=== PATIENT | female | born 1950 | race Caucasian/White ===

== ENCOUNTER 2020-11-09 21:51 | Inpatient (IN) | payer MEDICARE, SELFPAY ==
[2020-11-09 22:31] VITALS: BMI 25.7
--- NOTE | 2020-11-09 22:39 | ECG_ITS ---
APPROVED REPORT Exam: Resting ECG HR:76 bpm ECG Measurements Heart Rate 76 AXES CO 142 P 8 QRSd 100 QRS -20 QT 426 T 158 QTc 479 Conclusion Sinus rhythm with premature atrial complexes with aberrant conduction Left ventricular hypertrophy with repolarization abnormality Anteroseptal infarct, age undetermined Abnormal ECG Electronically signed by : Donavon Mendiola MD 11/10/2020 08:59:49
--- NOTE | 2020-11-09 22:54 | CT_ITS ---
PROCEDURE INFORMATION: Exam: CT Left Lower Extremity Without Contrast, Foot Exam date and time: 11/09/2020 10:54 PM Age: 69 years old Clinical indication: Other: Great toe infection ? gangrene; Additional info: Rule out bone infection diabetic great toe black ? gangrene TECHNIQUE: Imaging protocol: CT of the Left lower extremity without contrast was performed. Exam focused on the foot. Radiation optimization: All CT scans at this facility use at least one of these dose optimization techniques: automated exposure control; mA and/or kV adjustment per patient size (includes targeted exams where dose is matched to clinical indication); or iterative reconstruction. COMPARISON: No relevant prior studies available. FINDINGS: Bones/joints: There is marked diffuse bone demineralization. The distal phalangeal tuft of the great toe terminal phalanx appears very close to the wound surface, could be partially exposed. However, there is no rogerio cortical erosion or osteolysis demonstrated. 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 Scattered predominantly mild degenerative changes elsewhere. Moderate to large plantar calcaneal enthesophyte. Small corticated/chronic ossific bodies are seen near the dorsal margins of the 1st and 2nd metatarsal bases. Lateral subluxation of the hallux sesamoids. Soft tissues: Soft tissue ulceration of the distal great toe. No soft tissue gas. No abscess identified on this noncontrast exam. Soft tissue swelling of the great toe suspicious for cellulitis. Generalized subcutaneous edema throughout the foot and ankle is nonspecific, could be proximal spread of cellulitis or bland edema. Mild thickening of the plantar fascia central cord may reflect fasciitis. Fatty atrophy of the intrinsic foot musculature suggesting chronic denervation. Vasculature: Atherosclerotic calcifications. IMPRESSION: Distal great toe wound with possible exposure or near exposure of the distal phalangeal tuft. No rogerio cortical erosion/osteolysis or definitive CT features of acute osteomyelitis. However, given proximity of the bone to the wound surface, an early osteomyelitis is not strictly excluded. MRI may be considered for more sensitive assessment if clinically indicated.
--- NOTE | 2020-11-09 22:54 | XR_ITS ---
PROCEDURE INFORMATION: Exam: XR Left Foot Exam date and time: 11/09/2020 10:54 PM Age: 69 years old Clinical indication: Other: Great toe infection ? gangrene TECHNIQUE: Imaging protocol: XR Left foot. Views: 3 or more views. COMPARISON: CT FOOT LT WO CON 11/09/2020 11:18 PM FINDINGS: Bones/joints: Generalized osteopenia. No focal cortical erosion or osteolysis to suggest acute osteomyelitis. However, distal phalangeal tuft of the great toe terminal phalanx appears to be in close proximity to the wound site. Mild hallux valgus with moderate 1st MTP joint osteoarthrosis. 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 Otherwise scattered mild degenerative changes. Plantar calcaneal enthesophyte. Soft tissues: Ulceration of the distal great toe. No soft tissue gas apart from the wound site. Vasculature: Scattered atherosclerotic calcifications. IMPRESSION: 1. Distal great toe ulceration. 2. No specific radiographic features of acute osteomyelitis. The distal phalangeal tuft of the great toe terminal phalanx may be in close proximity to the wound site.
--- NOTE | 2020-11-09 22:54 | XR_ITS ---
PROCEDURE INFORMATION: Exam: XR Chest Exam date and time: 11/09/2020 10:54 PM Age: 69 years old Clinical indication: Pain; Chest pressure; Additional info: Nstemi, cp TECHNIQUE: Imaging protocol: XR of the chest. Views: 1 view. COMPARISON: No relevant prior studies available. FINDINGS: Lungs: Unremarkable. No consolidation. No overt pulmonary edema. Pleural spaces: No pleural effusion. No pneumothorax. Heart/Mediastinum: Normal heart size. Aortic atherosclerosis. Bones/joints: Osteopenia. Old rib fractures. Calcific tendinosis of the right rotator cuff. Left subacromial spurring suggested. IMPRESSION: No acute finding.
--- NOTE | 2020-11-09 23:01 | HMH.HP ---
*Admission Date: 11/09/20 *Chief complaint: abn ekg/trop *History of present illness: this patient was seen at [facility] -pt was found to have abn ekg and elevated troponin and was transfered to [facility] for card eval - pt also has concerns about living with her family and was considered to be depressed but not suicide risk-pt has diabetes - no recent known card dis and has not been compliant with meds [facility] History I have reviewed the patient's past medical history: Yes Medical History: Reports:: Coronary Artery Disease, Diabetes Mellitus Type 2, Hyperlipidemia, Hypertension Denies:: Cancer, Diabetes Mellitus Type 1, MRSA *Have you ever received a pneumonia vaccine?: Yes *Have you received a flu vaccine this season?: No Amputation: No - *Social History Last grade of school completed: High school graduate Smoking Status: Never smoker Alcohol Intake: never *Occupational Status:: unemployed Housing: house Household Members: family, children *Travel in the last 8 weeks: None Family Hx:: Non-contributory Review of Systems - Review of Systems Review of systems:: pertinent systems reviewed and negative unless documented below - Constitutional Denies fever(s) - Eyes Denies change in vision - ENT Denies sore throat - *Cardiovascular Reports chest pain, Denies shortness of breath - *Respiratory Denies cough - *Gastrointestinal Denies abdominal pain - *Genitourinary Denies blood in urine - *Musculoskeletal Reports joint pain - Integumentary/Breasts Denies rash - *Neurologic Denies localized weakness - Psychiatric Reports depression Meds Home Medications Medication Instructions Recorded Confirmed Type Atorvastatin Calcium [Lipitor 40mg 40 mg PO HS 11/09/20 11/09/20 History Tab] Glimepiride 2 mg PO DAILY 11/09/20 11/09/20 History Insulin Aspart [Novolog] 0 unit SQ DAILY 11/09/20 11/09/20 History Insulin Glargine,Hum.rec.anlog 0 units SQ DAILY 11/09/20 11/09/20 History [Lantus Insulin 100units/mL 10mL vial] Losartan Potassium 25 mg PO DAILY 11/09/20 11/09/20 History Metformin HCl [Metformin 1000mg 1,000 mg PO BID 11/09/20 11/09/20 History Tablets] Nitroglycerin [Nitrostat 0.4mg SL 0.4 mg SL NEEDED PRN 11/09/20 11/09/20 History Tablet] Oxybutynin Chloride [Ditropan Xl] 10 mg PO DAILY 11/09/20 11/09/20 History Pantoprazole Sodium [Protonix 40mg 40 mg PO DAILY 11/09/20 11/09/20 History tablet] Sertraline HCl [Zoloft 50mg tablet] 50 mg PO DAILY 11/09/20 11/09/20 History carvediloL [Carvedilol 25mg Tab] 25 mg PO BID 11/09/20 11/09/20 History Allergies Allergy/AdvReac Type Severity Reaction Status Date / Time No Known Allergies Allergy Verified 11/09/20 22:42 Exam I & O for Last 24 hours: Intake & Output 11/07/20 11/08/20 11/09/20 11/10/20 11:59 11:59 11:59 11:59 Weight 145 lb - Constitutional obese - *Routine HEENT Exam Head: Present: normocephalic Eye: Present: EOMI, PERRL ENT: Present: mucous membranes dry - *Routine Neck Exam Absent: JVD - *Routine Respiratory Exam Present: CTA bilaterally - *Routine Cardiovascular Exam Present: RRR, murmur - *Routine Abdominal Exam Present: soft - *Routine Rectal Exam Rectal:: deferred - *Routine Genitalia Exam Genitalia:: deferred - *Routine Extremities Exam Absent: calf tenderness Comments: changes lt great toe with reddness - *Routine Skin Exam Comments: changes lt great toe with crusted changes and tender with reddness - no smell noted - *Routine Neurological Exam Present: alert Assessment and Plan (1) Elevated troponin Status: Acute Category: Medical Code(s): R77.8 - Other specified abnormalities of plasma proteins (2) Diabetes mellitus Status: Acute Qualifiers: Diabetes mellitus type: type 2 Diabetes mellitus jail insulin use: unspecified jail insulin use status Diabetes mellitus complication status: with other specified compl
[2020-11-09 23:09] VITALS: BP 174/92; PULSE 78; RESP 15; O2SAT 98
[2020-11-09 23:10] LABS: Coronavirus 19, PCR Not Detected (NotDetected); Influenza A, PCR Not Detected (NotDetected); Influenza B, PCR Not Detected (NotDetected)
[2020-11-10] VITALS (18 sets, daily range): BP systolic 132–188; BP diastolic 56–100; PULSE 61–90; RESP 16–20; TEMP 35.2–37.3; O2SAT 94–100; BMI 25.7
--- NOTE | 2020-11-10 | IR_ITS ---
APPROVED REPORT Patient Location: Inpatient PROCEDURES Left heart catheterization Left ventriculogram Selective coronary angiogram Catheter placed in the abdominal aorta Abdominal aortogram Repositioning the catheter in the abdominal aorta Bilateral iliofemoral runoff Catheter placement in the left popliteal artery Left popliteal artery antegrade angiogram Angioplasty followed by bare-metal stent deployment to the left PT trunk extending into the left popliteal artery and left superficial femoral artery Catheter placement in the right renal artery Right renal artery selective angiogram Bare-metal stent deployment to the ostial right renal artery INDICATION Acute non-ST elevation myocardial infarction, Renovascular hypertension, Renal artery stenosis, Nadia claudication class V- involving the left leg, Abnormal RICCI, Occluded left popliteal artery extending into the PT trunk, Informed consent was obtained prior to the procedure. COMPLICATIONS None Estimated Blood Loss: less than 10ml TECHNIQUE 1% lidocaine used anesthetize right groin the right femoral artery was accessed via the Salinger technique and a 5 Cymraes sheath was placed in the right femoral artery. A [id number] JR4 catheter used to perform left heart catheterization left ventriculogram and selective coronary angiogram. Following this a pigtail catheter was placed in the abdominal aorta and abdominal aortography was performed. The catheter was then repositioned and bilateral iliofemoral runoff was performed. Following this a long advantage wire was then placed in the pigtail catheter and used to cannulate the left common iliac artery extending down into the left popliteal artery. The 5 Cymraes sheath was exchanged for a 6 Cymraes destination sheath. Therapeutic heparin was administered giving a therapeutic ACT. A 5 mm x 120 mm balloon was used to push through the occlusion and then placed in the PT trunk. The wire was removed and antegrade angiography was performed demonstrating patency and appropriate placement of the distal aspect of the balloon within the true lumen of the PT trunk. The wire was then reinserted and the balloon was inflated at 10 and 12 vick on multiple occasions at the PT trunk popliteal artery and then proximal SFA. Following this a 6 mm x 150 mm self-expanding EV 3 stent was deployed in the PT trunk extending retrograde into the popliteal artery. An additional 6 mm x 120 mm self-expanding stent was then placed proximal to this extending back into the SFA. 5 mm x 200 mm balloon was deployed at 20 and 22 and 24 vick to post dilate throughout all the vessels. After achieving excellent angiographic results with wide inline flow and wide patency of the above arteries the apparatus was repulled back in the 6 Cymraes sheath was exchanged for a 7 Cymraes sheath. Short MCKENNA catheter was used to intubate the right renal artery where a Choice PT wire was placed distally. A 6 mm x 12 mm Herculink stent was deployed at 20 vick reducing the critical stenosis to 0%. After achieving excellent angiographic results with wide patency of the right renal artery the apparatus was removed the groin was reprepped closure changed sheath was removed good hemostasis was achieved using Perclose device patient was transferred to the postop putting in stable condition ANGIOGRAPHIC RESULTS The left main artery Has an ostial calcified 30 to 40% stenosis The left anterior descending artery Has proximal 30 to 40% calcified stenoses with mid vessel 30% stenoses and a distal concentric 50% stenosis The circumflex artery Nondominant with mild proximal 10 to 20% calcified stenoses The right coronary artery Is a large dominant vessel with a proximal to mid
--- NOTE | 2020-11-10 | US_ITS ---
APPROVED REPORT Exam Type: Ankle to Brachial Index International Marketing Intern: Bri Dwyer, POT RUNNER Indications Claudication: Bilaterally Non-healing Ulcer: Rest Pain: Bilaterally Risk Factors Hypertension Hyperlipidemia TIA/CVA History Diabetes Pressures/Indices Right Indices Left Indices Brachial 200.00 mmHg Brachial 197.00 mmHg Low Thigh 211.00 mmHg 1.06 Low Thigh 119.00 mmHg 0.60 Calf 204.00 mmHg 1.02 Calf 114.00 mmHg 0.57 Ankle(PT) 185.00 mmHg 0.93 Ankle(PT) 78.00 mmHg 0.39 Ankle(DP) 216.00 mmHg 1.08 Ankle(DP) 129.00 mmHg 0.65 Digit 198.00 mmHg 0.99 Digit 87.00 mmHg 0.44 Findings Rt RICCI 1.1 Lt RICCI 0.7 Rt TBI 1.0 Lt TBI 0.5 Decreased pulses and waveforms on the left. Conclusion Rt RICCI 1.1 Lt RICCI 0.7 Rt TBI 1.0 Lt TBI 0.5 Decreased pulses and waveforms on the left. Some left arterial disease Electronically signed by : Ron Gonsaels MD 11/10/2020 15:33:39
[2020-11-10 00:01] LABS: Basophils # 0.1 K/mm3 (0-0.2); Basophils % 1.2 % (0.1-2.0); Eosinophils # 0.1 K/mm3 (0.0-0.4); Eosinophils % 1.8 % (0.1-12.0); Hematocrit 46.3 % (37.0-47.0); Lymphocytes % 27.1 % (10-50); Mean Corpuscular HGB Conc 32.4 g/dL (31.8-35.4); Mean Corpuscular Hemoglobin 29.7 pg (27.0-31.2); Mean Corpuscular Volume 91.7 fl (81-99); Mean Platelet Volume 9.1 fl (7.4-10.4); Monocytes # 0.3 K/mm3 (0.1-1.0); Monocytes % 4.3 % (1.7-9.3); Neutrophils # 4.8 K/mm3 (1.8-7.8); Neutrophils % 65.6 % (37.0-80.0); Platelet Count 276 K/mm3 (142-424); Red Blood Count 5.05 M/mm3 (4.20-5.40); Red Cell Distribution Width 13.6 % (11.5-17.5); White Blood Count 7.4 K/mm3 (4.8-10.8)
[2020-11-10 00:08] LABS: Anion Gap 13.8 mEq/L (5-15); Blood Urea Nitrogen 9 mg/dl (7-17); Calcium 9.4 mg/dl (8.4-10.2); Carbon Dioxide 25 mmol/L (22.0-30.0); Chloride 103 mmol/L (98-107); Creatinine Clearance Estimated 54 mL/min (50-200); Estimated Glomerular Filt Rate 99 ml/min (>60); GFR (African American) 120 ML/MIN (>60); Glucose 222 mg/dl (74-100); Lactic Acid 1.2 mmol/L (0.7-2.1); Potassium 3.8 mmoL/L (3.5-5.1); Sodium 138 mmol/L (136-145)
[2020-11-10 00:22] LABS: Troponin I 0.42 ng/ml (0.00-0.034)
[2020-11-10 00:23] LABS: Erythrocyte Sedimentation Rate 21 mm/hr (0-30)
--- NOTE | 2020-11-10 00:23 | PC.NURSE ---
notified md of elevated troponin
--- NOTE | 2020-11-10 05:23 | PC.NURSE ---
call placed to [facility] on 2nd floor to have patients placed on consult list for behavioral health,podiatry and cardiology
--- NOTE | 2020-11-10 05:31 | PC.NURSE ---
pt incontinent of bladder. turned and repositioned with staff assist. vss. blood collected and sent to lab for morning labs ordered.
[2020-11-10 06:05] LABS: Basophils # 0.1 K/mm3 (0-0.2); Basophils % 1.2 % (0.1-2.0); Eosinophils # 0.1 K/mm3 (0.0-0.4); Eosinophils % 2.1 % (0.1-12.0); Hematocrit 43.9 % (37.0-47.0); Hemoglobin 14.1 g/dL (12.2-16.2); Lymphocytes # 2.1 K/mm3 (0.7-4.5); Lymphocytes % 31.3 % (10-50); Mean Corpuscular Hemoglobin 29.8 pg (27.0-31.2); Mean Corpuscular Volume 92.9 fl (81-99); Mean Platelet Volume 9.3 fl (7.4-10.4); Monocytes # 0.3 K/mm3 (0.1-1.0); Monocytes % 4.8 % (1.7-9.3); Neutrophils % 60.6 % (37.0-80.0); Platelet Count 290 K/mm3 (142-424); Red Blood Count 4.73 M/mm3 (4.20-5.40); Red Cell Distribution Width 13.5 % (11.5-17.5); White Blood Count 6.7 K/mm3 (4.8-10.8)
[2020-11-10 06:22] LABS: Anion Gap 10.1 mEq/L (5-15); Blood Urea Nitrogen 11 mg/dl (7-17); Calcium 9.1 mg/dl (8.4-10.2); Carbon Dioxide 26 mmol/L (22.0-30.0); Chloride 104 mmol/L (98-107); Chol/HDL Ratio 6.9 (1-3.5); Cholesterol 254 mg/dl (140-200); Creatinine Clearance Estimated 54 mL/min (50-200); Estimated Glomerular Filt Rate 99 ml/min (>60); GFR (African American) 120 ML/MIN (>60); Glucose 243 mg/dl (74-100); HDL Cholesterol 37 mg/dl (40-60); Magnesium 1.5 mg/dl (1.6-2.3); Potassium 4.1 mmoL/L (3.5-5.1); Sodium 136 mmol/L (136-145); Triglycerides 185 mg/dl (30-150); VLDL Cholesterol 37 mg/dL (0-40)
[2020-11-10 06:33] LABS: Direct LDL Cholesterol 164.19 mg/dL (100-129)
--- NOTE | 2020-11-10 07:22 | HMH.PHAVTE ---
[facility] Pharmacy VTE Monitoring - Patient Demographics Admission date: 11/10/20 Report Date: 11/10/20 Time: 07:22 Allergies/Adverse Reactions: Patient Allergies No Known Allergies Allergy (Verified 11/09/20 22:42) Height: 1.6 m Weight: 65.771 kg Patient Problems: Current Active Problems Elevated troponin (Acute) Diabetes mellitus (Acute) Hyperlipidemia (Acute) Cellulitis and abscess of foot (Acute) Diabetic foot ulcer (Acute) Depressed (Acute) HTN (hypertension) (Acute) GERD (gastroesophageal reflux disease) (Acute) - VTE Risk Labs: VTE Related Lab Results Hgb 14.1 g/dL (12.2-16.2) 11/10/20 05:45 Hct 43.9 % (37.0-47.0) 11/10/20 05:45 Plt Count 290 K/mm3 (142-424) 11/10/20 05:45 BUN 11 mg/dl (7-17) 11/10/20 05:45 Creatinine 0.60 mg/dl (0.52-1.04) 11/10/20 05:45 Estimated Creat Clear 54 mL/min (50-200) 11/10/20 05:45 - Prophylaxis VTE Prophylaxis Ordered?: Yes Types of VTE Prophylaxis: TEDS Knee High Location of Applied Device: Bilateral Lower Extremeties
--- NOTE | 2020-11-10 07:30 | PC.NURSE ---
PT RESTING IN BED. PT ALERT AND ORIENTED X 4 SKIN WARM AND DRY COLOR PINK. RESP EVEN AND EASY.
--- NOTE | 2020-11-10 07:44 | HMH.CNCARD ---
History of Present Illness Consult date: 11/10/20 Requesting physician: Rajinder Sparrow Consult reason: chest pain Chief complaint: chest pain History of present illness: 69-year-old female was transferred from [facility] last evening with elevated troponins and chest pain. Patient is poor historian. Patient states that she lives with her son who has been treating her very bad. Patient states she was transported to [facility] due to her crying. Patient denies chest pain, tightness or pressure. Patient denies shortness of breath. Patient denies dizziness or palpitations. Patient denies any history of coronary artery disease. Patient states she did undergo left heart catheterization around 20 years ago at a hospital in [facility]. Patient states she was told her heart was fine. Patient denies following up with any cardiology group since her heart catheterization 20 years ago. Patient does have history of hypertension which is uncontrolled. Patient is noncompliant with medications. Patient has history of diabetes type 2, which is uncontrolled. History of hyperlipidemia in which patient is on a statin. LDL was noted as 164. Patient states she has been depressed since living with her son. She denies suicidal ideations. Patient does states that her son does not give her medication nor does he feed her. Patient was very tearful. Will defer this to PCP and case management. Patient noted with nonhealing wound of the left great toe. The tip of the great left toe noted with necrosis and redness extending to the left foot. Podiatry in room. RICCI had been performed. Preliminary report on RICCI reported weak pulse of the left foot with decreased waveforms of the left foot. Left was noted as 0.7. Patient states over a month ago her grandson had stepped on her toe, and she felt that this was due to that incident. Defer nonhealing wound to podiatry. Chest CTA was performed which revealed normal heart size, aortic atherosclerosis. No acute findings noted. EKG revealed sinus rhythm with premature atrial complexes with aberrant conduction. Left ventricular hypertrophy with repolarization anteroseptal infarct, abnormal EKG with a heart rate of 76 bpm. Chest x-ray revealed no acute finding. Serial troponins were noted at 0.42. Blood pressure is noted as elevated. Patient states she has not taken her blood pressure medications for some time. We will restart losartan 25 mg for better BP control. Also start carvedilol 25 mg twice daily for heart rate and blood pressure control. Foot CTIMPRESSION: Distal great toe wound with possible exposure or near exposure of the distal phalangeal tuft. No rogerio cortical erosion/osteolysis or definitive CT features of acute osteomyelitis. However, given proximity of the bone to the wound surface, an early osteomyelitis is not strictly excluded. MRI may be considered for more sensitive assessment if clinically indicated. Chest CTA:FINDINGS: Lungs: Unremarkable. No consolidation. No overt pulmonary edema. Pleural spaces: No pleural effusion. No pneumothorax. Heart/Mediastinum: Normal heart size. Aortic atherosclerosis. Bones/joints: Osteopenia. Old rib fractures. Calcific tendinosis of the right rotator cuff. Left subacromial spurring suggested. IMPRESSION: No acute finding. Discussed plan of care with Dr. Adhikari. Orders were received from Dr. Adhikari. Patient will be set up for a left heart catheterization due to non-STEMI and left lower extremity runoff due to abnormal RICCI. Discussed risks and benefits with patient undergoing left heart catheterization and lower extremity runoff, patient verbalized understanding and is agreeable to procedure. Pending on the results of the left heart catheterization and left lower extremity runoff, medication and treatment therapies may be recommended. Management of nonhealing wound deferred to PCP and podiatry.
--- NOTE | 2020-11-10 08:25 | PC.NURSE ---
CARDIOLOGY AT BEDSIDE
--- NOTE | 2020-11-10 08:30 | PC.NURSE ---
PODIATRY AT BEDSIDE
--- NOTE | 2020-11-10 08:38 | HMH.ORTHOCON ---
*Admission Date: 11/10/20 <Tova Mathews - 11/10/20 08:45> *Reason for consult:: Left Hallux gangrene wound and cellulitis <Tova Mathews - 11/10/20 08:45> *History of present illness: Physician Attestation: I was present during all of the critical components of the consult visit. The patient was seen, evaluated and examined by myself and Tova Mathews APRN. I have read the note that was documented by the ELECTRIFICATION ADVISER and agree with the documentation. A total of 60 mins was spent on encounter/consult including face to face exam, review of labs, chart review, x-rays/CT/RICCI review, discussion of plan of care with another provider and documentation. <Brianda Oconnell - 11/10/20 12:37> Patient was brought into the ER last night for having elevated troponin but denies chest pain. She also has a wound to her Left Hallux distal tip that is a dry gangrene ulcer. Patient not sure of exactly of how long she has had the wound she states approximately a month. Started out as her clipping her toenail started to bleed, then she put on the dressing and then the whole nail come off. There is cellulitis contained to the Left hallux. Left DP/PT weakly palpable, the Right DP/PT is bounding, palpable. Patient had ABIs obtained this morning while in the emergency room the left RICCI 0.65, will not be doing any debriding to traumatize the the tissue any further. Patient is scheduled to have runoff sometime today we will reevaluate the tissue after the runoff. We have talked with the patient about what needed to be done to treat the left hallux. We have obtained verbal and written surgical consent for I&D of the left hallux of any nonviable soft tissue and bone, bone biopsy, and possible left toe amputation. Patient is to remain n.p.o. until after all the procedures have been completed today <Tova Mathews - 11/10/20 09:42> [facility] History I have reviewed the patient's past medical history: Yes <Tova Mathews - 11/10/20 10:42> Medical History: Reports:: Coronary Artery Disease, Diabetes Mellitus Type 2, Hyperlipidemia, Hypertension Denies:: Cancer, Diabetes Mellitus Type 1, MRSA <Tova Mathews 11/10/20 08:45> *Have you ever received a pneumonia vaccine?: Yes <Tova Mathews 11/10/20 08:45> *Have you received a flu vaccine this season?: No <Tova Mathews 11/10/20 08:45> Amputation: No <Tova Mathews 11/10/20 08:45> - *Social History Last grade of school completed: High school graduate <Tova Mathews 11/10/20 08:45> Smoking Status: Never smoker <Tova Mathews 11/10/20 08:45> Alcohol Intake: never <Tova Mathews 11/10/20 08:45> *Occupational Status:: unemployed <Tova Mathews 11/10/20 08:45> Housing: house <Tova Mathews 11/10/20 08:45> Household Members: family, children <Tova Mathews 11/10/20 08:45> *Travel in the last 8 weeks: None <Tova Mathews 11/10/20 08:45> Family Hx:: Non-contributory <Tova Mathews 11/10/20 08:45> Review of Systems - Constitutional Reports fatigue, Reports other (poor appetite) <Tova Mathews 11/10/20 10:42> - Eyes Denies change in vision <Tova Mathews 11/10/20 10:42> - ENT Denies abnormal hearing <Tova Mathews 11/10/20 10:42> - *Cardiovascular Denies chest pain, Denies shortness of breath <BisiTova Faria 11/10/20 10:42> - *Respiratory Denies cough, Denies shortness of breath <Tova Mathews 11/10/20 10:42> - *Gastrointestinal Denies abdominal pain <BisiTova Faria 11/10/20 10:42> - *Genitourinary Reports absent period <Tova Mathews 11/10/20 10:42> - *Musculoskeletal Reports numbness, Reports tingling <Tova Mathews 11/10/20 10:42> - Integumentary/Breasts Reports nail changes, Reports dry skin, Reports redness (Cellulitis to left hallux), Reports wounds (Left hallux DM ulcers with gangrene) <Tova Mathews 11/10/20 10:42> - *Neurologic Denies abnormal speech, Denies localized weakness
--- NOTE | 2020-11-10 09:55 | PC.NURSE ---
PT UP TO BATHROOM PER WHEELCHAIR WITH ASSIST OF ONE.
[2020-11-10 10:01] LABS: Hemoglobin A1C 13.5 % (4.0-6.0)
--- NOTE | 2020-11-10 11:34 | HMH.PHAINT ---
MEDICATION RECONCILIATION COMPLETED ON PATIENT BY USING MEDICATION LIST FROM [facility] AND CALLING [facility] IN [place]. LAST FILL THERE WAS LAST YEAR. PATIENT HAS BEEN NONCOMPLIANT WITH MEDICATIONS.
--- NOTE | 2020-11-10 13:57 | PC.NURSE ---
1355 Report received from Leanna Lama RN in labeler
--- NOTE | 2020-11-10 14:07 | PC.NURSE ---
pt arrived to the floor at this time.
--- NOTE | 2020-11-10 14:46 | PC.NURSE ---
Unable to complete admission assessment interventions at this time. Pt has been drowsy since arrival to dept from labor economics professor.
--- NOTE | 2020-11-10 16:19 | PC.NURSE ---
1555 Bear paws initiated for mild hypothermia. Will continue to monitor rectal temp per protocol. Pt has slept since coming from cath lab nurse. Arouses to name, will not stay awake for long enough to complete admission assessment. Bed locked and in lowest position with side rails up x2. Call light within reach.
--- NOTE | 2020-11-10 16:45 | HMH.PHACONS ---
- Pharmacy Consult Date: 11/10/20 Time: 16:45 Referring provider: KARTHIK Reason for Consult:: VANCOMYCIN DOSING Allergies and ADEs:: Allergies Allergy/AdvReac Type Severity Reaction Status Date / Time No Known Allergies Allergy Verified 11/09/20 22:42 Home Medications:: Home Medications Medication Instructions Recorded Confirmed Type Atorvastatin Calcium [Lipitor 40mg 40 mg PO HS 11/09/20 11/09/20 History Tab] Glimepiride 2 mg PO DAILY 11/09/20 11/09/20 History Losartan Potassium 25 mg PO DAILY 11/09/20 11/09/20 History Metformin HCl [Metformin 1000mg 1,000 mg PO BIDWMEAL 11/09/20 11/10/20 History Tablets] Nitroglycerin [Nitrostat 0.4mg SL 0.4 mg SL Q5MINP PRN 11/09/20 11/10/20 History Tablet] Oxybutynin Chloride [Ditropan Xl] 10 mg PO DAILY 11/09/20 11/09/20 History Pantoprazole Sodium [Protonix 40mg 40 mg PO DAILY 11/09/20 11/09/20 History tablet] Sertraline HCl [Zoloft 50mg tablet] 50 mg PO DAILY 11/09/20 11/09/20 History carvediloL [Carvedilol 25mg Tab] 25 mg PO BID 11/09/20 11/09/20 History Height: 1.6 m Weight: 66 kg Laboratory Results:: Laboratory Results - last 24 hr 11/09/20 23:00: SARS-CoV-2 (PCR) Not detected, Influenza A Untype (PCR) Not detected, Influenza Type B (PCR) Not detected 11/09/20 23:50: WBC 7.4, RBC 5.05, Hgb 15.0, Hct 46.3, MCV 91.7, MCH 29.7, MCHC 32.4, RDW 13.6, Plt Count 276, MPV 9.1, Neut % (Auto) 65.6, Lymph % (Auto) 27.1, [place] % (Auto) 4.3, Eos % (Auto) 1.8, Baso % (Auto) 1.2, Neut # (Auto) 4.8, Lymph # (Auto) 2.0, [place] # (Auto) 0.3, Eos # (Auto) 0.1, Baso # (Auto) 0.1, ESR 21 11/09/20 23:50: Sodium 138, Potassium 3.8, Chloride 103, Carbon Dioxide 25, Anion Gap 13.8, BUN 9, Creatinine 0.60, Estimated Creat Clear 54, Estimated GFR 99, Est GFR ( Amer) 120, Glucose 222 H, Calcium 9.4, Troponin I 0.42 H, C-Reactive Protein 7.0 H 11/09/20 23:50: Lactate 1.2 11/10/20 05:45: WBC 6.7, RBC 4.73, Hgb 14.1, Hct 43.9, MCV 92.9, MCH 29.8, MCHC 32.0, RDW 13.5, Plt Count 290, MPV 9.3, Neut % (Auto) 60.6, Lymph % (Auto) 31.3, [place] % (Auto) 4.8, Eos % (Auto) 2.1, Baso % (Auto) 1.2, Neut # (Auto) 4.0, Lymph # (Auto) 2.1, [place] # (Auto) 0.3, Eos # (Auto) 0.1, Baso # (Auto) 0.1 11/10/20 05:45: Sodium 136, Potassium 4.1, Chloride 104, Carbon Dioxide 26, Anion Gap 10.1, BUN 11, Creatinine 0.60, Estimated Creat Clear 54, Estimated GFR 99, Est GFR ( Amer) 120, Glucose 243 H, Calcium 9.1, Magnesium 1.5 L, Triglycerides 185 H, Cholesterol 254 H, LDL Cholesterol Direct 164.19 H, VLDL Cholesterol 37, HDL Cholesterol 37 L, Cholesterol/HDL Ratio 6.9 H 11/10/20 05:45: Hemoglobin A1c 13.5 H Medical History: Reports:: Coronary Artery Disease, Diabetes Mellitus Type 2, Hyperlipidemia, Hypertension Denies:: Cancer, Diabetes Mellitus Type 1, MRSA Assessment and Plan (1) Elevated troponin Status: Acute Category: Medical Code(s): R77.8 - Other specified abnormalities of plasma proteins (2) Diabetes mellitus Status: Acute Qualifiers: Diabetes mellitus type: type 2 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 Diabetes mellitus complication status: with other specified complication Qualified Code(s): E11.69 - Type 2 diabetes mellitus with other specified complication Category: Medical Code(s): E11.9 - Type 2 diabetes mellitus without complications (3) Hyperlipidemia Status: Acute Qualifiers: Hyperlipidemia type: unspecified Qualified Code(s): E78.5 - Hyperlipidemia, unspecified Category: Medical Code(s): E78.5 - Hyperlipidemia, unspecified (4) Cellulitis and abscess of foot Status: Acute Category: Medical Code(s): L03.119 - Cellulitis of unspecified part of limb; L02.619 - Cutaneous abscess of unspecified foot (5) Diabetic foot ulcer Status: Acute Qualifiers: Diabetic foot ulcer location: toe Diabetes mellitus type: type 2 Laterality: left Non-pressure ulcer stage: with other severity Q
--- NOTE | 2020-11-10 17:06 | HMH.ACPN2 ---
Internal Medicine - PN: Subj *Date: 11/11/20 *Time: 07:22 Interval history: had card procedure today - and was seen by podiatry Exam Vital signs and Labs for Last 24 Hours: Temp Pulse Resp BP Pulse Ox 95.3 F L 66 20 188/86 H 100 11/10/20 15:55 11/10/20 15:55 11/10/20 15:55 11/10/20 15:55 11/10/20 15:55 Laboratory Results - last 24 hr 11/09/20 23:00: SARS-CoV-2 (PCR) Not detected, Influenza A Untype (PCR) Not detected, Influenza Type B (PCR) Not detected 11/09/20 23:50: WBC 7.4, RBC 5.05, Hgb 15.0, Hct 46.3, MCV 91.7, MCH 29.7, MCHC 32.4, RDW 13.6, Plt Count 276, MPV 9.1, Neut % (Auto) 65.6, Lymph % (Auto) 27.1, [place] % (Auto) 4.3, Eos % (Auto) 1.8, Baso % (Auto) 1.2, Neut # (Auto) 4.8, Lymph # (Auto) 2.0, [place] # (Auto) 0.3, Eos # (Auto) 0.1, Baso # (Auto) 0.1, ESR 21 11/09/20 23:50: Sodium 138, Potassium 3.8, Chloride 103, Carbon Dioxide 25, Anion Gap 13.8, BUN 9, Creatinine 0.60, Estimated Creat Clear 54, Estimated GFR 99, Est GFR ( Amer) 120, Glucose 222 H, Calcium 9.4, Troponin I 0.42 H, C-Reactive Protein 7.0 H 11/09/20 23:50: Lactate 1.2 11/10/20 05:45: WBC 6.7, RBC 4.73, Hgb 14.1, Hct 43.9, MCV 92.9, MCH 29.8, MCHC 32.0, RDW 13.5, Plt Count 290, MPV 9.3, Neut % (Auto) 60.6, Lymph % (Auto) 31.3, [place] % (Auto) 4.8, Eos % (Auto) 2.1, Baso % (Auto) 1.2, Neut # (Auto) 4.0, Lymph # (Auto) 2.1, [place] # (Auto) 0.3, Eos # (Auto) 0.1, Baso # (Auto) 0.1 11/10/20 05:45: Sodium 136, Potassium 4.1, Chloride 104, Carbon Dioxide 26, Anion Gap 10.1, BUN 11, Creatinine 0.60, Estimated Creat Clear 54, Estimated GFR 99, Est GFR ( Amer) 120, Glucose 243 H, Calcium 9.1, Magnesium 1.5 L, Triglycerides 185 H, Cholesterol 254 H, LDL Cholesterol Direct 164.19 H, VLDL Cholesterol 37, HDL Cholesterol 37 L, Cholesterol/HDL Ratio 6.9 H 11/10/20 05:45: Hemoglobin A1c 13.5 H I & O for Last 24 hours: Intake & Output 11/08/20 11/09/20 11/10/20 11/11/20 11:59 11:59 11:59 11:59 Intake Total 0 / 0 0 / 0 Output Total 200 / 200 Balance -200 / -200 0 / 0 Weight 145 lb 145 lb 8.081 oz - Constitutional no acute distress - *Routine HEENT Exam Head: Present: normocephalic Eye: Present: EOMI, PERRL ENT: Present: mucous membranes dry - *Routine Neck Exam Absent: JVD - *Routine Respiratory Exam Present: decreased breath sounds - *Routine Cardiovascular Exam Present: RRR - *Routine Abdominal Exam Present: soft - *Routine Extremities Exam Comments: changes lt foot - *Routine Skin Exam Present: intact - *Routine Neurological Exam Present: alert, CN II-XII intact - Routine Psychiatric Exam Present: cooperative, anxious Assessment and Plan (1) Elevated troponin Status: Acute Category: Medical Code(s): R77.8 - Other specified abnormalities of plasma proteins (2) Diabetes mellitus Status: Acute Qualifiers: Diabetes mellitus type: type 2 Diabetes mellitus custodial insulin use: unspecified long term acute care registered nurse insulin use status Diabetes mellitus complication status: with other specified complication Qualified Code(s): E11.69 - Type 2 diabetes mellitus with other specified complication Category: Medical Code(s): E11.9 - Type 2 diabetes mellitus without complications (3) Hyperlipidemia Status: Acute Qualifiers: Hyperlipidemia type: unspecified Qualified Code(s): E78.5 - Hyperlipidemia, unspecified Category: Medical Code(s): E78.5 - Hyperlipidemia, unspecified (4) Cellulitis and abscess of foot Status: Acute Category: Medical Code(s): L03.119 - Cellulitis of unspecified part of limb; L02.619 - Cutaneous abscess of unspecified foot (5) Diabetic foot ulcer Status: Acute Qualifiers: Diabetic foot ulcer location: toe Diabetes mellitus type: type 2 Laterality: left Non-pressure ulcer stage: with other severity Qualified Code(s): E11.621 - Type 2 diabetes mellitus with foot ulcer; L97.528 - Non-pressure chronic ulcer of other part of left foot wit
--- NOTE | 2020-11-10 19:55 | PC.NURSE ---
bear paws removed at this time d/t temp 99.1 rectally
[2020-11-10 21:27] LABS: POC Glucose,Bedside 278 (70-110)
--- NOTE | 2020-11-10 22:54 | CA_ITS ---
APPROVED REPORT EXAM: Comprehensive 2D, Doppler, and color-flow Echocardiogram Board Machine Set Up Operator: Bri Dwyer CRT Ht: 5 ft 3 in Wt: 145lbs BSA: 1.69 BP: 1120/80 mmHg Indications: CVA/TIA, Diabetes, Peripheral Edema, CAD, Hyperlipidemia, Hypertension/HDD, GERD 2D Dimensions LVOT 1.46 cm (M/F) 1.5-2.5 LA Volume 55.10 mL LA Volume Index 32.60 mL/m2 (M/F) 16-34 M-Mode Dimensions RVDd 1.90 cm (0.9-2.6) LA Diam 4.09 cm (1.9-4.0) LVDd 3.78 cm (3.5-5.7) Ao Diam 3.52 cm (2.0-3.7) LVDs 2.96 cm (3.5-5.7) IVSd 2.42 cm (0.6-1.1) PWd 1.19 cm (0.6-1.1) EF (Teich) 44.60% FS 21.70% EDV (Teich) 61.20 mL TAPSE 1.41 (<1.7) ESV (Teich) 33.90 mL LV Diastology E Decel Time 383.00 (160-240 msec) E/A Ratio 0.59 MED E' 4.10 (< 7 cm/sec) MED A' 10.30 cm/s E'/MED E' Ratio 15.37 (>14) LAT E' 4.30 (<10 cm/sec) LAT A' 6.20 cm/s E/LAT E' Ratio 14.65 (>14) Aortic Valve AI PHT 294.00 ms AO Peak GR. 9.00 mmHg Mitral Valve MV A Velocity 107.00 (40-130 cm/s) E/A Ratio 0.59 MV Decel. Time 383.00 (160-240 ms) Pulmonary Valve PV Peak Velocity 107.00 (50-150 cm/s) Tricuspid Valve TR P. Velocity 234.00 cm/s RAP Estimate 10.00 mmHg RVSP 31.90 mmHg Left Ventricle Left atrium is mildly enlarged, left ventricle is normal size, moderate concentric left ventricular hypertrophy, visually estimated ejection fraction 50% with no regional wall motion abnormality, grade 1 diastolic dysfunction seen with tissue Doppler evidence of raise left atrial pressure. Right Ventricle Right atrium and right ventricle are normal size and contractility. Aortic Valve Aortic valve is thickened and calcified without Doppler evidence of aortic stenosis or aortic insufficiency. Mitral Valve Mitral valve has mitral annular calcification, leaflets are minimally thickened, there is mild mitral regurgitation. Tricuspid Valve Tricuspid valve grossly normal, there is mild tricuspid regurgitation, tricuspid regurgitation jet velocity is inadequate for calculation of the right ventricular systolic pressure. Pulmonic Valve Pulmonic valve is poorly visualized. Great Vessels Aortic root is normal size. Inferior vena cava is poorly visualized. Pericardium No significant pericardial effusion noted. Conclusion 1. Mildly enlarged left atrium, normal left ventricular size, moderate concentric left ventricular hypertrophy, visually estimated ejection fraction 55% with no regional wall motion abnormality, grade 1 diastolic dysfunction seen with tissue Doppler evidence of raise left atrial pressure. 2. Thickened and calcified aortic valve without aortic stenosis or aortic insufficiency. 3. Mild mitral and tricuspid regurgitation. 4. No significant pericardial effusion noted. Electronically signed by : Tyson Bertrand MD 11/10/2020 21:32:22
[2020-11-11] VITALS (18 sets, daily range): BP systolic 114–156; BP diastolic 52–84; PULSE 66–78; RESP 12–18; TEMP 36.1–37.1; O2SAT 96–100; BMI 25.7
--- NOTE | 2020-11-11 03:51 | PC.NURSE ---
pt has rested well throughout shift, pt is alert and oriented x 3, pt is refusing all care at this time, pt refused vitals and reassessment and refused to allow nurse to look at femoral cath site, no bleeding noted to blankets at this time, will continue to monitor at this time.
--- NOTE | 2020-11-11 07:37 | HMH.PNCARD ---
Subjective Date: 11/11/20 Time: 07:35 Principal diagnosis: Non-STEMI Interval history: 69-year-old female was admitted with non-STEMI. Patient is poor historian. Patient did undergo left heart catheterization and lower extremity runoff yesterday. Left heart catheterization revealed nonflow limiting coronary artery disease, hyperdynamic ventricle consistent with hypertensive heart disease. Normal left ventricular pressures noted. Severe right renal artery stenosis noted. Successful stenting to the right renal artery due to severe disease, with one bare-metal stent. Successful reconstruction of the left SFA left popliteal artery and left PT trunk 100% occluded reduced to less than 10% with two bare-metal self-expanding stents. Bilateral single vessel runoff below the knee noted. Patient was started on Plavix 75 mg one a day along with aspirin 81 mg p.o. daily. Patient was also started on Xarelto 2.5 twice daily for PAD. Patient is also on atorvastatin for hyperlipidemia. Right groin cath site noted with dressing intact no swelling noted. Patient denies chest pain, tightness or pressure. Patient denies shortness of breath. Patient denies dizziness or palpitations. Patient noted with nonhealing wound of the left great toe. The tip of the great left toe noted with necrosis and redness extending to the left foot. Defer nonhealing wound to podiatry. Podiatry is planning for patient to have debridement of the left great toe today. VS stable. Echocardiogram was obtained. Echo revealed EF 55% with no regional wall motion abnormality. Mild MR and TR noted. case monitor reveals sinus rhythm with a heart rate of 80 bpm with no ectopy. LHCANGIOGRAPHIC RESULTS The left main artery Has an ostial calcified 30 to 40% stenosis The left anterior descending artery Has proximal 30 to 40% calcified stenoses with mid vessel 30% stenoses and a distal concentric 50% stenosis The circumflex artery Nondominant with mild proximal 10 to 20% calcified stenoses The right coronary artery Is a large dominant vessel with a proximal to mid vessel tubular 30 to 40% stenosis with mild 10 to 20% stenosis distally The [place] ventriculogram reveals Hyperdynamic 75% The left ventricular end-diastolic pressure 10 mmHg Suprarenal abdominal aorta is normal with a widely patent infrarenal abdominal aorta. Right renal artery singular and has an ostial concentric 90% stenosis while the left renal artery has a dual arterial supply with both vessels being widely patent Bilateral common internal and external iliac arteries are widely patent Bilateral common femoral arteries are widely patent the bilateral profunda femoris arteries are widely patent The right superficial femoral artery is proximally calcified at 30 to 40% with a 60 to 70% stenosis at Shalom's canal. The proximal popliteal artery has a 70 to 80% calcified stenosis with 80 to 90% stenoses in the distal popliteal artery. Distally there is single-vessel runoff from the anterior tibialis artery which does not appear to supply the right foot however it was of poor diagnostic angiographic quality Left superficial femoral artery as proximal concentric 40 to 50% stenosis. At Shalom's canal there was a 90% concentric stenosis and then the popliteal artery is subtotally occluded calcified and 100% occluded. The vessel appears to reconstitute at the PT trunk and then supplies single-vessel runoff below the knee to the left foot via the anterior tibialis artery IMPRESSION Nonflow limiting coronary disease as described above Hyperdynamic ventricle consistent with hypertensive heart disease Normal left ventricular and pressure Severe right renal artery stenosis Successful stenting of the right renal artery severe disease reduced to 0% with 1 bare-metal stent Successful reconstruction of the left SFA left popliteal artery and left PT trunk 100% occlusion reduced to less than 10% with 2 bare-metal
[2020-11-11 07:44] LABS: Basophils # 0.1 K/mm3 (0-0.2); Basophils % 0.8 % (0.1-2.0); Eosinophils # 0.1 K/mm3 (0.0-0.4); Eosinophils % 1.6 % (0.1-12.0); Hematocrit 40.7 % (37.0-47.0); Hemoglobin 13.4 g/dL (12.2-16.2); Lymphocytes % 15.8 % (10-50); Mean Corpuscular Hemoglobin 30.3 pg (27.0-31.2); Mean Corpuscular Volume 91.7 fl (81-99); Mean Platelet Volume 8.8 fl (7.4-10.4); Monocytes # 0.4 K/mm3 (0.1-1.0); Monocytes % 5.6 % (1.7-9.3); Neutrophils # 4.9 K/mm3 (1.8-7.8); Neutrophils % 76.2 % (37.0-80.0); Platelet Count 224 K/mm3 (142-424); Red Blood Count 4.44 M/mm3 (4.20-5.40); Red Cell Distribution Width 13.5 % (11.5-17.5); White Blood Count 6.4 K/mm3 (4.8-10.8)
--- NOTE | 2020-11-11 07:45 | PC.NURSE ---
IV in Right wrist noted to be infiltrated and removed. New 20g IV placed in LAC. X4 attempts. Pt. tolerated well.
[2020-11-11 07:56] LABS: Blood Urea Nitrogen 8 mg/dl (7-17); Calcium 8.8 mg/dl (8.4-10.2); Carbon Dioxide 26 mmol/L (22.0-30.0); Creatinine Clearance Estimated 55 mL/min (50-200); Estimated Glomerular Filt Rate 83 ml/min (>60); GFR (African American) 100 ML/MIN (>60)
[2020-11-11 08:06] LABS: Chloride 104 mmol/L (98-107); Glucose 205 mg/dl (74-100); Sodium 137 mmol/L (136-145)
--- NOTE | 2020-11-11 08:09 | HMH.ORTHPN ---
Subjective Date: 11/11/20 Time: 07:45 Principal diagnosis: Non-STEMI Interval history: Patient doing very well this am. She states her toe is throbbing and hurt some through the night. Patient is NPO this am and will be going to surgery later this morning for incision and drainage of nonviable soft tissue and bone, bone biopsy, possible toe amputation of the left hallux. I cleaned the site with saline flush this morning, the site has less erythema but is still very tender to touch. The gangrene is still very dry no drainage noted to the site. The area was redressed with Betadine soaked 4 x 4, dry 4 x 4, Kerlix dressing. Patient's leg is marked for the appropriate site for surgery and her consent was reviewed at bedside and patient can state procedure to be done today. Vital signs are stable patient denies any nausea vomiting or fever. PN: Obj Ex Vital signs: Temp Pulse Resp BP Pulse Ox 98.7 F 70 18 155/80 H 96 11/11/20 00:00 11/11/20 04:00 11/11/20 00:00 11/11/20 00:00 11/11/20 00:00 - Constitutional no acute distress - Routine HEENT Exam Head: Present: normocephalic Eye: Present: EOMI ENT: Present: mucous membranes moist - Routine Neck Exam Present: trachea midline - Routine Respiratory Exam Absent: respiratory distress - Routine Cardiovascular Exam Present: RRR - Routine Abdominal Exam Present: soft - Routine Extremities Exam Present: edema, pulses intact (Left DP/PT pedal pulses are little more palpable this morning but still weakly noted. Right DP PT bounding), tenderness - Detailed Lower Extremity Exam Top foot image: 1 - Left hallux Medial side DM ulcer with dry gangrene. Cellulitis contained to the LH does not extend proxiamally. Hard black eschar tissues noted to the distal/medial side of toe. No Maloder noted. Weakly palpableDP/PT pulses. No debridement performed, sites measured: Left Hallux small proximal ulcer: 1.2x 0.8x ocm, dark eshcar tissue noted, no drainage. Distal/medial wound measures: 4.2x 3.3x0cm. No debridement done, site dressed with betadine soaked 4x4, DSD. - Routine Back/Spine/Pelvis Exam Back/Spine: Present: full ROM - Routine Skin Exam Present: erythema, dry, warm, wounds (Left hallux gangrene ulcer) - Routine Neurological Exam Present: alert, oriented X3, vision grossly intact, hearing grossly intact, normal speech - Routine Psychiatric Exam Present: normal affect, cooperative Progress Note: A&P (1) Elevated troponin Status: Acute (2) Diabetes mellitus Status: Acute (3) Hyperlipidemia Status: Acute (4) Cellulitis and abscess of foot Status: Acute (5) Diabetic foot ulcer Status: Acute (6) Depressed Status: Acute (7) HTN (hypertension) Status: Acute (8) GERD (gastroesophageal reflux disease) Status: Acute (9) Gangrene of toe of left foot Status: Acute (10) Abnormal ankle brachial index (RICCI) Status: Acute (11) Decreased pedal pulses Status: Acute (12) Pain of left great toe Status: Acute (13) Coronary artery disease Status: Acute (14) Hypertensive heart disease Status: Acute (15) Renal artery stenosis Status: Acute (16) PAD (peripheral artery disease) Status: Acute Assessment and Plan for All Diagnoses:: Date of Service: 11/09/20 Procedure(s): CT foot LT wo con CT Left Lower Extremity Without Contrast, Foot MPRESSION: Distal great toe wound with possible exposure or near exposure of the distal phalangeal tuft. No rogerio cortical erosion/osteolysis or definitive CT features of acute osteomyelitis. However, given proximity of the bone to the wound surface, an early osteomyelitis is not strictly excluded. MRI may be considered for more sensitive assessment if clinically indicated. Laboratory Tests 11/09/20 11/09/20 11/10/20 23:50 23:50 05:45 WBC ESR 21 BUN Creatinine
--- NOTE | 2020-11-11 08:53 | HMH.ACPN2 ---
Internal Medicine - PN: Subj *Date: 11/11/20 *Time: 08:53 Interval history: looks better and alert - having pod surg today and still wishes placement - discussed med compliance with pt - Exam Vital signs and Labs for Last 24 Hours: Temp Pulse Resp BP Pulse Ox 98.7 F 70 18 155/80 H 96 11/11/20 00:00 11/11/20 04:00 11/11/20 00:00 11/11/20 00:00 11/11/20 00:00 Laboratory Results - last 24 hr 11/10/20 05:45: Hemoglobin A1c 13.5 H 11/10/20 19:53: POC Glucose 278 H 11/11/20 07:02: WBC 6.4, RBC 4.44, Hgb 13.4, Hct 40.7, MCV 91.7, MCH 30.3, MCHC 33.0, RDW 13.5, Plt Count 224, MPV 8.8, Neut % (Auto) 76.2, Lymph % (Auto) 15.8, [place] % (Auto) 5.6, Eos % (Auto) 1.6, Baso % (Auto) 0.8, Neut # (Auto) 4.9, Lymph # (Auto) 1.0, [place] # (Auto) 0.4, Eos # (Auto) 0.1, Baso # (Auto) 0.1 11/11/20 07:02: Sodium 137, Potassium 4.0, Chloride 104, Carbon Dioxide 26, Anion Gap 11.0, BUN 8 D, Creatinine 0.70, Estimated Creat Clear 55, Estimated GFR 83, Est GFR ( Amer) 100, Glucose 205 H, Calcium 8.8 I & O for Last 24 hours: Intake & Output 11/08/20 11/09/20 11/10/20 11/11/20 11:59 11:59 11:59 11:59 Intake Total 0 / 0 0 / 0 Output Total 200 / 200 Balance -200 / -200 0 / 0 Weight 145 lb 145 lb 8.081 oz - Constitutional no acute distress - *Routine HEENT Exam Head: Present: normocephalic Eye: Present: EOMI, PERRL ENT: Present: mucous membranes dry - *Routine Neck Exam Absent: JVD - *Routine Respiratory Exam Present: decreased breath sounds - *Routine Cardiovascular Exam Present: RRR, murmur - *Routine Abdominal Exam Present: soft - *Routine Extremities Exam Comments: changes lt great toe - *Routine Skin Exam Comments: changes lt great toe - *Routine Neurological Exam Present: alert, CN II-XII intact - Routine Psychiatric Exam Present: normal affect Assessment and Plan (1) Elevated troponin Status: Acute Category: Medical Code(s): R77.8 - Other specified abnormalities of plasma proteins (2) Diabetes mellitus Status: Acute Qualifiers: Diabetes mellitus type: type 2 Diabetes mellitus local intermodal truck driver insulin use: unspecified local intermodal truck driver insulin use status Diabetes mellitus complication status: with other specified complication Qualified Code(s): E11.69 - Type 2 diabetes mellitus with other specified complication Category: Medical Code(s): E11.9 - Type 2 diabetes mellitus without complications (3) Hyperlipidemia Status: Acute Qualifiers: Hyperlipidemia type: unspecified Qualified Code(s): E78.5 - Hyperlipidemia, unspecified Category: Medical Code(s): E78.5 - Hyperlipidemia, unspecified (4) Cellulitis and abscess of foot Status: Acute Category: Medical Code(s): L03.119 - Cellulitis of unspecified part of limb; L02.619 - Cutaneous abscess of unspecified foot (5) Diabetic foot ulcer Status: Acute Qualifiers: Diabetic foot ulcer location: toe Diabetes mellitus type: type 2 Laterality: left Non-pressure ulcer stage: with other severity Qualified Code(s): E11.621 - Type 2 diabetes mellitus with foot ulcer; L97.528 - Non-pressure chronic ulcer of other part of left foot with other specified severity Category: Medical Code(s): E11.621 - Type 2 diabetes mellitus with foot ulcer; L97.509 - Non-pressure chronic ulcer of other part of unspecified foot with unspecified severity (6) Depressed Status: Acute Qualifiers: Depression Type: unspecified Qualified Code(s): F32.9 - Major depressive disorder, single episode, unspecified Category: Medical Code(s): F32.9 - Major depressive disorder, single episode, unspecified (7) HTN (hypertension) Status: Acute Qualifiers: Hypertension type: primary hypertension Qualified Code(s): I10 - Essential (primary) hypertension Category: Medical Code(s): I10 - Essential (primary) hypertension (8) GERD (gastroesophageal reflux disease) Status: Acute Juan Antonio
--- NOTE | 2020-11-11 09:20 | SW/DCPLANNER ---
Addendum entered by [facility] 11/12/20 14:34: Family members name/number is not listed to contact regarding discharge plans. Patient threw away piece of paper with family contact number. Patient is agreeable to discharge to [facility] today. PICC line has been placed. Addendum entered by [facility] 11/12/20 12:56: Carmen with [facility] has stated that their van will be able to transport this patient once medically stable for discharge. Addendum entered by [facility] 11/12/20 08:57: I have notified Carmen that this patient will be stable for discharge later today. I will fax over patient information including PT/OT evaluations. Addendum entered by [facility] 11/11/20 12:32: Carmen with [facility] has stated that she will accept this patient once medically stable for discharge. Original Note: I spoke with this patient regarding placement. Patient stated that she is currently residing with family but is interesting in discharging to a intermediate facility once medically stable for discharge. I explained to patient the process of admitting to a facility under Medicare benefit and she must be able to work with therapy: patient is agreeable. Patient stated that she is open to any local or surrounding [facility] facility. At this time patient information has been faxed to Carmen cordero/ [facility]. Dr Oconnell will be performing surgery on this patient today. Discharge date is unknown at this time along with PT/OT evaluation. I will continue to follow up with patient and Carmen from [facility].
--- NOTE | 2020-11-11 12:12 | HMH.ANESCL ---
[facility] Anesthesia Checklist - Patient Identification Patient Identification: Arm Band, Verbal (Name & ) - Structural Data Admitted From: Home Planned Operative Procedure/s: i& D Left Great Toe Consent for Planned Operative Procedure(s) Verified: Yes Verified Documents: Surgical Consent - NPO Status Verified Time NPO: 00:00 - Chart Verification Results Verified: CBC, BMP - Cardiovascular Assessment Heart Sounds: S1 & S2 Pulse Rhythm: Regular - Airway Assessment C-Spine Mobility Assessed: Yes TMJ Mobility Assessed: Yes Dentition: Poor Dentition - Neurological Assessment Level of Consciousness: Awake, Alert, Appropriate - Anesthesia Plan ASA Class: III Anesthesia Type: MAC [facility] History Medical History: Reports:: Coronary Artery Disease, Diabetes Mellitus Type 2, Hyperlipidemia, Hypertension Denies:: Cancer, Diabetes Mellitus Type 1, MRSA *Have you ever received a pneumonia vaccine?: No *Have you received a flu vaccine this season?: No Anesthesia experience/problems:: no issues Amputation: No - *Social History Last grade of school completed: High school graduate Smoking Status: Never smoker Alcohol Intake: never Substance Use Type: denies use *Occupational Status:: unemployed Housing: house Household Members: family, children *Travel in the last 8 weeks: None Family Hx:: Non-contributory
--- NOTE | 2020-11-11 12:58 | HMH.OPNOTE ---
Date of procedure: 11/11/20 Pre-op Diagnosis:: 1. Left hallux osteomyelitis 2. Left hallux gangrene 3. Left diabetic foot ulcer 4. Left hallux cellulitis Post-op Diagnosis:: Same Procedure performed:: 1. Left hallux amputation 2. Left hallux irrigation and debridement with ulcer excision Surgeon:: Brianda Oconnell DPM CIGARETTE EXAMINER:: Other (Sarthak Cuadra) Anesthesia: MAC, local (20cc 0.5% marcaine plain) Estimated blood loss (mL): 5 Clinical Note:: Patient was admitted 11/10/2020 as a transfer from [facility] with elevated troponins. She did have a heart cath and an angiogram runoff by Dr. Adhikari 11/10/2020. Patient had abnormal ABIs and a left hallux gangrenous diabetic toe. She has been on IV vancomycin. We discussed conservative versus surgical treatment options. Conservative treatment options include local wound care, oral and IV antibiotics, change in shoe wear, taping/padding, and off-loading. We discussed surgical intervention for amputation of the left hallux. Patient understands that there is a chance that the [toes can migrate to fill the gap or the] foot may change shape after surgery. Patient also understands that they could have wound healing complications including delayed healing and infection. We discussed that if the wound does not heal, it is possible that they may need a more proximal amputation and could result in further loss of digits, loss of partial foot or loss of leg. We discussed the risks and benefits in great detail. Other surgical risks include: prolonged pain and swelling, further infection requiring oral or IV antibiotics, delay in healing of soft tissue or bone, nerve or blood vessel damage, CRPS/RSD, DVT, anesthesia complications, and even . All questions answered. Patient verbalized understanding. Consent obtained. Medical and cardiac clearance granted. Operative findings:: Left hallux distal dorsal toe had gangrenous changes. The toenail was missing and there was a diabetic ulcer with 100% black eschar the entire tip of the toe approximately 4 x 4 cm. Cellulitis noted from the toe, periwound extending to the first MPJ. The distal and proximal phalanx both had cortical irregularities. The bone was soft and crumbly. No obvious tracking up the extensor or flexor tendons. Operative note:: On this date and time patient was deemed an appropriate surgical candidate. With informed consent signed, the patient was taken to the operating theater. The patient was positioned supine. MAC anesthesia was induced. No tourniquet used. Pre-op left hallux and forefoot blocks given with 20 cc 0.5% marcaine plain. IV Vancomycin given. Left hallux amputation, irrigation and debridement, ulcer excision: The left lower extremity was prepped and drapped in normal sterile fashion. Cellulitis noted around the gangrenous ulcer. A fish mouth incision was mapped out. Utilizing a 15 blade dissection was carried down sharply to the level of the bone around the distal phalanx which was disarticulated from the proximal phalanx. The ulcer and distal toe was removed in total and sent for gross path. All nonviable soft tissue was debrided sharply excisionally with 15' blade and forceps. The distal phalanx bone was soft and crumbly and had a mild malodor to it. It was sent for bone culture. Attention was then directed to the proximal phalanx. The head was soft and easily broken, discolored with cortical erosions noted. Decision made to remove proximal phalanx. Incision extended like racquet ball onto 1st metatarsal. The proximal phalanx was removed and sent for bone pathology. The head of the 1st metatarsal was intact with no cortical erosions, discoloration or obvious signs of osteomyelitis. Next gentamicin in saline irrigation was used to flush the wound. The wound was reexplored and no further signs of infection noted. Bleeding controlled. Vessels ligated with electrocautery, none tied as there was minimal blood loss. 3-0 Prolene was used to close skin in an interr
--- NOTE | 2020-11-11 13:04 | XR_ITS ---
PROCEDURE: XR FOOT LT MIN 3V CLINICAL INDICATION: Left hallux amp COMPARISON: CR XR FOOT LT MIN 3V from 11/09/2020 FINDINGS: Status post amputation at the 1st metatarsophalangeal joint Good bony alignment. Bandage artifact at the amputation site Other findings:. small calcaneal spur IMPRESSION: Status post amputation at the 1st MTP joint Dictated by: Ron Gonsales MD 11/11/2020 15:30 Ron Gonsales MD in [place] 11/11/2020 15:30
[2020-11-11 13:13] LABS: POC Glucose,Bedside 228 (70-110)
--- NOTE | 2020-11-11 13:23 | PC.NURSE ---
Report received from Josefina Martinez RN.
--- NOTE | 2020-11-11 13:30 | PC.NURSE ---
Pt. returned to room 205 via bed. accompanied by PACU staff x2.
--- NOTE | 2020-11-11 13:49 | SUR.PHASEI ---
1330 FSBS obtained with result of 228. Report given to Adelita Staton RN
--- NOTE | 2020-11-11 17:05 | PC.NURSE ---
Routine reassessment completed. VSS. pt. weak from surgery. Left foot wrapped in radu wrap remains C/D/I. pt. had left great toe amputated. Pt. denies pain and is resting easily, more agreeable to taking medications and having Sugar level be checked, FSBS at 255. 6 units insulin given, see MAR. No further changes from previous assessment. staff assisted pt. to BSC. Pt. weak, and requires x2 assist. Pt. voided and passed small BM on BSC. Staff assisted pt back to bed. Nurse attempted to let pt. sit on side of bed for dinner, but pt. too weak to sit up on her own. Staff helped pt. to lay back in bed, and bed placed in chair position for dinner. Pt. denies further needs, awaiting dinner tray arrival, will continue to monitor.
[2020-11-11 17:12] LABS: POC Glucose,Bedside 255 (70-110)
[2020-11-11 20:42] LABS: POC Glucose,Bedside 293 (70-110)
[2020-11-11 21:05] LABS: POC Glucose,Bedside 243 (70-110)
[2020-11-11 21:05] LABS: POC Glucose,Bedside 236 (70-110)
[2020-11-12] VITALS: BP 138/72; PULSE 67; PULSE 70; RESP 16; TEMP 36.6; O2SAT 98
--- NOTE | 2020-11-12 01:40 | ECG_ITS ---
APPROVED REPORT Exam: Resting ECG HR:77 bpm ECG Measurements Heart Rate 77 AXES PA 150 P 37 QRSd 102 QRS 67 QT 424 T 264 QTc 479 Conclusion Normal sinus rhythm Anteroseptal infarct, age undetermined Marked ST abnormality, possible inferior subendocardial injury Abnormal ECG Electronically signed by : Donavon Mendiola MD 11/12/2020 11:18:30
--- NOTE | 2020-11-12 03:14 | PC.NURSE ---
pt has rested well throughout shift, no change from previous assessment, dressing to left foot is clean dry and intact, no distress noted at this time, will continue to monitor
[2020-11-12 04:00] VITALS: BP 170/76; PULSE 70; PULSE 72; RESP 18; TEMP 36.6; O2SAT 97
[2020-11-12 05:16] LABS: Anion Gap 9.7 mEq/L (5-15); Blood Urea Nitrogen 8 mg/dl (7-17); Calcium 8.4 mg/dl (8.4-10.2); Carbon Dioxide 25 mmol/L (22.0-30.0); Chloride 102 mmol/L (98-107); Creatinine Clearance Estimated 55 mL/min (50-200); Estimated Glomerular Filt Rate 122 ml/min (>60); GFR (African American) 148 ML/MIN (>60); Glucose 379 mg/dl (74-100); Potassium 3.7 mmoL/L (3.5-5.1); Sodium 133 mmol/L (136-145)
[2020-11-12 05:20] LABS: Basophils % 0.4 % (0.1-2.0); Eosinophils # 0.1 K/mm3 (0.0-0.4); Eosinophils % 1.1 % (0.1-12.0); Hematocrit 39.2 % (37.0-47.0); Hemoglobin 12.6 g/dL (12.2-16.2); Lymphocytes # 1.4 K/mm3 (0.7-4.5); Lymphocytes % 21.9 % (10-50); Mean Corpuscular HGB Conc 32.2 g/dL (31.8-35.4); Mean Corpuscular Hemoglobin 30.4 pg (27.0-31.2); Mean Corpuscular Volume 94.3 fl (81-99); Mean Platelet Volume 9.3 fl (7.4-10.4); Monocytes # 0.4 K/mm3 (0.1-1.0); Monocytes % 5.7 % (1.7-9.3); Neutrophils # 4.4 K/mm3 (1.8-7.8); Neutrophils % 70.9 % (37.0-80.0); Platelet Count 205 K/mm3 (142-424); Red Blood Count 4.16 M/mm3 (4.20-5.40); Red Cell Distribution Width 13.6 % (11.5-17.5); White Blood Count 6.2 K/mm3 (4.8-10.8)
[2020-11-12 05:39] LABS: Vancomycin,Trough 8.6 ug/mL (5.0-10.0)
[2020-11-12 05:42] VITALS: BMI 25.7
--- NOTE | 2020-11-12 05:51 | PC.NURSE ---
spoke with Bridget[facility] at [facility] regarding vanc trough of 8.6, pharmacist states ok to continue on current vancomycin regimen
[2020-11-12 08:00] VITALS: BP 155/70; PULSE 76; RESP 15; TEMP 36.7; O2SAT 98
--- NOTE | 2020-11-12 08:22 | HMH.ORTHPN ---
Subjective Date: 11/12/20 <Tova Mathews - 11/12/20 08:24> Time: 08:22 <Tova Mathews - 11/12/20 08:24> Principal diagnosis: Non-STEMI <Tova Mathews - 11/12/20 08:24> Interval history: Patient evaluated. I have read documentation and agree with plan of care. Cultures/intra-op specimens pending. All orders per Dr. Oconnell. F/u with Podiatry 11/18/20 @0800 <AnishBrianda - 11/12/20 11:59> Patient doing very well this morning. Patient has just finished breakfast and denies any nausea or vomiting. Patient states she slept well and did not have any acute pain with her left hallux amp. There was good pulses noted DP and PT this morning. Site had some small amount of bleeding when compressed but no acute pain like she had prior surgery. Sutures intact. Cleaned the area with Betadine and redressed with Betadine soaked 4 x 4, dry sterile gauze and Curlex and Mauro wrap. Dr. Sparrow and care management was rounding this morning while in the room plans for patient to be discharged today to [facility] nursing facility for for rehab. <JaredteresaTova - 11/12/20 09:24> PN: Obj Ex Vital signs: Temp Pulse Resp BP Pulse Ox 98.1 F 76 15 155/70 H 98 11/12/20 08:00 11/12/20 08:00 11/12/20 08:00 11/12/20 08:00 11/12/20 08:00 <AnishBrianda - 11/12/20 11:59> Temp Pulse Resp BP Pulse Ox 98 F 72 18 170/76 H 97 11/12/20 04:00 11/12/20 04:00 11/12/20 04:00 11/12/20 04:00 11/12/20 04:00 <Tova Mathews - 11/12/20 08:24> - Constitutional no acute distress <JaredteresaTova Bienvenido 11/12/20 10:01> - Routine HEENT Exam Head: Present: normocephalic <JaredteresaTova Faria 11/12/20 10:01> Eye: Present: EOMI <Tova Mathews 11/12/20 10:01> ENT: Present: mucous membranes moist <Tova Mathews 11/12/20 10:01> - Routine Neck Exam Present: trachea midline <Tova Mathews 11/12/20 10:01> - Routine Respiratory Exam Absent: respiratory distress <Tova Mathews 11/12/20 10:01> - Routine Cardiovascular Exam Present: RRR <Tova Mathews 11/12/20 10:01> - Routine Abdominal Exam Present: soft <Tova Mathews 11/12/20 10:01> - Routine Extremities Exam Present: pulses intact, normal capillary refill, amputation (S/P LH amputation 11/11/20). Absent: calf tenderness <Tova Mathews 11/12/20 10:01> - Detailed Lower Extremity Exam Top foot image: 1 - S/P 11/11/20 LH amputatio and excision of ulcer. Sutures are intact. Inproving erythema and edema. No ascending cellultis. Mild pain to palpation. DP/PT was palpable to both RIght and Left foot today. Site cleaned with betadine and dressed with Betadine soaked 4x4, dry 4x4, kerlix and mauro wrap. <Tova Mathews 11/12/20 10:01> - Routine Back/Spine/Pelvis Exam Back/Spine: Present: full ROM <Tova Mathews 11/12/20 10:01> - Routine Skin Exam Present: erythema, dry, wounds (surgical site s/p LH amputation and excision of ulcer) <Tova Mathews 11/12/20 10:01> - Routine Psychiatric Exam Present: normal affect, cooperative <Tova Mathews 11/12/20 10:01> Progress Note: A&P (1) Elevated troponin Status: Acute (2) Diabetes mellitus Status: Acute (3) Hyperlipidemia Status: Acute (4) Cellulitis and abscess of foot Status: Acute (5) Diabetic foot ulcer Status: Acute (6) Depressed Status: Acute (7) HTN (hypertension) Status: Acute (8) GERD (gastroesophageal reflux disease) Status: Acute (9) Gangrene of toe of left foot Status: Acute (10) Abnormal ankle brachial index (RICCI) Status: Acute (11) Decreased pedal pulses Status: Acute (12) Pain of left great toe Status: Acute (13) Coronary artery disease Status: Acute (14) Hypertensive heart disease Status: Acute (15) Renal artery stenosis Status: Acute (16) PAD (peripheral artery disease) St
--- NOTE | 2020-11-12 08:51 | HMH.PNCARD ---
Subjective Date: 11/12/20 Time: 08:00 Principal diagnosis: Non-STEMI Interval history: 69-year-old female was admitted with non-STEMI 3 days ago. Patient is poor historian. Patient did undergo left heart catheterization and lower extremity runoff . Left heart catheterization revealed nonflow limiting coronary artery disease, hyperdynamic ventricle consistent with hypertensive heart disease. Normal left ventricular pressures noted. Severe right renal artery stenosis noted. Successful stenting to the right renal artery due to severe disease, with one bare-metal stent. Successful reconstruction of the left SFA left popliteal artery and left PT trunk 100% occluded reduced to less than 10% with two bare-metal self-expanding stents. Bilateral single vessel runoff below the knee noted. Patient was started on Plavix 75 mg one a day along with aspirin 81 mg p.o. daily. Patient was also started on Xarelto 2.5 twice daily for PAD. Patient is also on atorvastatin for hyperlipidemia. Right groin cath site noted with dressing intact no swelling noted. Patient denies chest pain, tightness or pressure. Patient denies shortness of breath. Patient denies dizziness or palpitations. Patient noted with nonhealing wound of the left great toe. The tip of the great left toe noted with necrosis and redness extending to the left foot. Podiatry did perform left hallux amputation, irrigation and debridement yesterday of the left great toe. Cellulitis is noted around gangrene ulcer of the left foot toe. Nursing staff was concerned of rhythm change during the evening. Repeat EKG was performed. EKG reveals normal sinus rhythm, atrial septal infarct, marked ST abnormality, abnormal EKG with a heart rate of [address] Adhikari did review this EKG. Patient noted to have left bundle branch block. This is new. Recommend no new changes patient is on appropriate medication for standard heart disease. Patient is asymptomatic. Thank you for allowing cardiology to participate in the care of this patient. Exam Vital signs and Labs for Last 24 Hours: Temp Pulse Resp BP Pulse Ox 98 F 72 18 170/76 H 97 11/12/20 04:00 11/12/20 04:00 11/12/20 04:00 11/12/20 04:00 11/12/20 04:00 Laboratory Results - last 24 hr 11/10/20 17:03: POC Glucose 243 H 11/11/20 11:00: POC Glucose 236 H 11/11/20 13:05: POC Glucose 228 H 11/11/20 17:01: POC Glucose 255 H 11/11/20 20:22: POC Glucose 293 H 11/12/20 04:55: WBC 6.2, RBC 4.16 L, Hgb 12.6, Hct 39.2, MCV 94.3, MCH 30.4, MCHC 32.2, RDW 13.6, Plt Count 205, MPV 9.3, Neut % (Auto) 70.9, Lymph % (Auto) 21.9, [place] % (Auto) 5.7, Eos % (Auto) 1.1, Baso % (Auto) 0.4, Neut # (Auto) 4.4, Lymph # (Auto) 1.4, [place] # (Auto) 0.4, Eos # (Auto) 0.1, Baso # (Auto) 0.0 11/12/20 04:55: Sodium 133 L, Potassium 3.7, Chloride 102, Carbon Dioxide 25, Anion Gap 9.7, BUN 8, Creatinine 0.50 L D, Estimated Creat Clear 55, Estimated GFR 122, Est GFR ( Amer) 148 D, Glucose 379 H D, Calcium 8.4 11/12/20 04:55: Vancomycin Trough 8.6 I & O for Last 24 hours: Intake & Output 11/09/20 11/10/20 11/11/20 11/12/20 23:59 23:59 23:59 23:59 Intake Total 0 / 0 240 / 240 Output Total 200 / 200 Balance -200 / -200 240 / 240 Weight 145 lb 145 lb 8.081 oz 145 lb 8.081 oz 145 lb Microbiology Reports for the Last 24 Hours: Microbiology 11/11/20 12:20 Toe,Left Great Gram Stain - Final 11/09/20 23:50 Blood Blood Culture - Preliminary NO GROWTH AFTER 48 HOURS 11/09/20 23:50 Blood Blood Culture - Preliminary NO GROWTH AFTER 48 HOURS - Constitutional no acute distress, average body habitus, cooperative - *Routine HEENT Exam Head: Present: normocephalic ENT: Present: mucous membranes moist - *Routine Neck Exam Present: supple, normal carotid upstroke. Absent: full ROM, JVD, carotid bruit Comments: Debility due to left foot - *Routine Respirator
--- NOTE | 2020-11-12 09:09 | HMH.PTEV ---
Physical Therapy Evaluation Rehab PT IP Evaluation Start: 11/11/20 12:55 Freq: ONCE Status: Active Protocol: Document 11/12/20 09:00 PHORKARI (Rec: 11/12/20 09:09 PHORNE [id number]) Subjective/History History History Pt is 69 year old female admitted to [facility] s/p non-STEMI and L hallux amputation. Pt reports living with her son's family in one level home with no stairs. She reports no prior use of an AD and independence in mobility prior to admittance at [facility]. Pt is PWB on L LE at this time. Eval completed by DESTIN Lowe. Subjective Subjective Pt reports feeling well this morning and stated she would like to walk with PT. Rehab PT IP Eval Objective Appearance Patient Behavior Appropriate,Cooperative Patient Orientation Place,Name,Birthday,Year Difficulty following instructions none Speech Pattern Clear,Appropriate,Coherent Ambulation Patient Able to Ambulate Yes Ambulation Observation IP General Gait Pattern Observation Shuffling Step,Decrease Weight Bear (L) Ambulation Distance (feet) 15 Ambulation Assistive Device Rolling Walker Ambulation Ability Minimal x 1 (25% assist) Balance Ability to Arise Able, uses arms to help Sitting Balance Steady, safe Standing Balance Steady, wide stance Dynamic Sitting Balance Ability Good Dynamic Standing Balance Ability Good Transfers Bed Transfer Ability Contact Guard/Hand Hold Chair Transfer Ability Minimal x 1 (25% assist) Sit to Stand Bed Transfer Ability Contact Guard/Hand Hold ROM All Extremities PT ROM Status WFL MMT All Extremities PT MMT WFL Rehab PT IP prob,goals,plan Problems Date of Evaluation: 11/12/20 PT IP Problems Gait,Balance,Safety Rehab Potential Rehab Potential Good Equipment Needs Assistive Devices Rolling / Wheeled Walker Plan PT Intervention Plan Gait,Balance,Safety, Therapeutic Exercise PT Plan Frequency BID Duration LOS Discharge Goals Bed Transfer Ability Contact Guard/Hand Hold Sit to Stand Chair Transfer Ability Contact Guard/Hand Hold Ambulation Assistive Device Rolling Walker Ambulation Distance (feet) 20 Discharge Plan PT Discharge
[2020-11-12 10:44] LABS: Vancomycin,Peak 20.8 ug/ml (11-39)
--- NOTE | 2020-11-12 10:49 | HMH.DCSUM ---
General - General Admission date:: 11/09/20 Discharge date: 11/12/20 HPI HPI: this patient was seen at [facility] -pt was found to have abn ekg and elevated troponin and was transfered to [facility] for card eval - pt also has concerns about living with her family and was considered to be depressed but not suicide risk-pt has diabetes - no recent known card dis and has not been compliant with meds Hospital Course Hospital Course: Laboratory Tests 11/09/20 11/09/20 11/09/20 23:00 23:50 23:50 WBC 7.4 RBC 5.05 Hgb 15.0 Hct 46.3 MCV 91.7 MCH 29.7 MCHC 32.4 RDW 13.6 Plt Count 276 MPV 9.1 Neut % (Auto) 65.6 Lymph % (Auto) 27.1 [place] % (Auto) 4.3 Eos % (Auto) 1.8 Baso % (Auto) 1.2 Neut # (Auto) 4.8 Lymph # (Auto) 2.0 [place] # (Auto) 0.3 Eos # (Auto) 0.1 Baso # (Auto) 0.1 ESR 21 Sodium 138 Potassium 3.8 Chloride 103 Carbon Dioxide 25 Anion Gap 13.8 BUN 9 Creatinine 0.60 Estimated Creat Clear 54 Estimated GFR 99 Est GFR ( Amer) 120 Glucose 222 H POC Glucose Hemoglobin A1c Lactate Calcium 9.4 Magnesium Troponin I 0.42 H C-Reactive Protein 7.0 H Triglycerides Cholesterol LDL Cholesterol Direct VLDL Cholesterol HDL Cholesterol Cholesterol/HDL Ratio Vancomycin Peak Vancomycin Trough SARS-CoV-2 (PCR) Not detected Influenza A Untype (PCR) Not detected Influenza Type B (PCR) Not detected 11/09/20 11/10/20 11/10/20 23:50 05:45 05:45 WBC 6.7 RBC 4.73 Hgb 14.1 Hct 43.9 MCV 92.9 MCH 29.8 MCHC 32.0 RDW 13.5 Plt Count 290 MPV 9.3 Neut % (Auto) 60.6 Lymph % (Auto) 31.3 [place] % (Auto) 4.8 Eos % (Auto) 2.1 Baso % (Auto) 1.2 Neut # (Auto) 4.0 Lymph # (Auto) 2.1 [place] # (Auto) 0.3 Eos # (Auto) 0.1 Baso # (Auto) 0.1 ESR Sodium 136 Potassium 4.1 Chloride 104 Carbon Dioxide 26 Anion Gap 10.1 BUN 11 Creatinine 0.60 Estimated Creat Clear 54 Estimated GFR 99 Est GFR ( Amer) 120 Glucose 243 H POC Glucose Hemoglobin A1c Lactate 1.2 Calcium 9.1 Magnesium 1.5 L Troponin I C-Reactive Protein Triglycerides 185 H Cholesterol 254 H LDL Cholesterol Direct 164.19 H VLDL Cholesterol 37 HDL Cholesterol 37 L Cholesterol/HDL Ratio 6.9 H Vancomycin Peak Vancomycin Trough SARS-CoV-2 (PCR) Influenza A Untype (PCR) Influenza Type B (PCR) 11/10/20 11/10/20 11/10/20 05:45 17:03 19:53 WBC RBC Hgb Hct MCV MCH MCHC RDW Plt Count MPV Neut % (Auto) Lymph % (Auto) [place] % (Auto) Eos % (Auto) Baso % (Auto) Neut # (Auto) Lymph # (Auto) [place] # (Auto) Eos # (Auto) Baso # (Auto) ESR Sodium Potassium Chloride Carbon Dioxide Anion Gap BUN Creatinine Estimated Creat Clear Estimated GFR Est GFR ( Amer) Glucose POC Glucose 243 H 278 H Hemoglobin A1c 13.5 H Lactate Calcium Magnesium Troponin I C-Reactive Protein Triglycerides Cholesterol LDL Cholesterol Direct VLDL Cholesterol HDL Cholesterol Cholesterol/HDL Ratio Vancomycin Peak Vancomycin Trough SARS-CoV-2 (PCR) Influenza A Untype (PCR) Influenza Type B (PCR) 11/11/20 11/11/20 11/11/20 07:02 07:02 11:00 WBC 6.4 RBC 4.44 Hgb 13.4 Hct 40.7 MCV 91.7 MCH 30.3 MCHC 33.0 RDW 13.5 Plt Count 224 MPV 8.8 Neut % (Auto) 76.2 Lymph % (Auto) 15.8 [place] % (Auto) 5.6 Eos % (Auto) 1.6 Baso % (Auto) 0.8 Neut # (Auto) 4.9 Lymph # (Auto) 1.0 [place] # (Auto) 0.4 Eos # (Auto) 0.1 Baso # (Auto) 0.1 ESR Sodium 137 Potassium 4.0 Chloride 104 Carbon Dioxide 26 Anion Gap 11.0 BUN 8 D Creatinine 0.7
[2020-11-12 12:00] VITALS: BP 131/72; PULSE 98; RESP 16; TEMP 36.9; O2SAT 97
--- NOTE | 2020-11-12 12:03 | XR_ITS ---
PROCEDURE: XR CHEST PORTABLE PICC PLAC CLINICAL HISTORY: Confirm PICC line placement COMPARISON: CR XR CHEST PORTABLE from 11/09/2020 FINDINGS: The cardiomediastinal silhouette and pulmonary vascularity are within normal limits. The lungs are clear without infiltrates, suspicious nodules, or pleural effusions. Right-sided PICC line is been inserted. The tip is in the region the SVC. No acute bony findings. IMPRESSION: Right upper extremity PICC line tip in SVC region. Dictated by: Ron Gonsales MD 11/12/2020 14:58 Ron Gonsales MD in [place] 11/12/2020 14:58
--- NOTE | 2020-11-12 13:43 | PC.NURSE ---
[id number] Xie at bedside at this time for PICC insertion, pt stable and will continue to monitor
--- NOTE | 2020-11-12 15:19 | PC.NURSE ---
late entries..... [id number] Pastrana at bedside performing left hallux amp dressing change 0848-physical therapy at bedside
--- NOTE | 2020-11-12 15:25 | HMH.BHCONS ---
*Admission Date: 11/10/20 *Reason for consult:: depression *History of present illness: I interviewed patient at bedside. -she is alone -she states that she should be -cause her son and his wanted to get rid of her -that they called EMS for her -she has been living with him on and off for the past 10 years -she states that she doesn't want to go back there -that they don't let her do anything -'you sit there and don't get up' -this is something they say to her -she states that they isolate her -accuse her of wanting to get them arrested -she states that there are so many people in the home and it is always crazy -she lives with her oldest son; her 51 year old son -she states that she has another son; age 3838 years old; and they don't talk -she doesn't elaborate on this even when I asked her why -she states that she has MDD; every time she goes into that house -cause of how they treat her -she states that they take her SSI check and she gets nothing -that she has lost everything -her house; her things -she states that they threw all of her things away -she states that she has had depression for a while -at least 20 years since her -that when he she weighed 1000 pounds -and she lost down to where she is now -she states that when she was that heavy; she was still able to care for herself and others in the home -she has been on zoloft for 'a long time' -she states that she has been on others but can't remember what the names were -she states that I would have to ask her know it all son ORIENTATION QUESTIONS: -year; I don't know -born in 1950 -day--is Tuesday or -season is fall -month--can't remember -date-- the -president--Vy -at [facility] -Nick -the country is also [place] -in [place] -asked to do serial 7's; I did 100-93; then she said [id number] -spell world; [id number] -would not attempt backwards -repeats no ifs ands or buts without difficulty -immediate recall 04/16 -3 minute recall: 02/16 She states that she wants to go to rehab. -she states that her son called the EMS cause she threaten to kill herself if she had to stay there long -she states that she was looking for a gun -she never once mentioned her foot until I brought this up -she then states that she was here to get this cut off -that they cut off her entire foot -I then redirected her; cause she has her foot uncovered and it is there with a bandage -she then states that she meant they cut off her big toe -she states that she is willing to go to rehab -cause she doesn't want to be where she lives right now -and can't live by herself -she states that if she had to live by herself that she would for sure -she states that she can't do anything; she can't cook; they haven't let her and she forgot how She states that her medicines are fine. -she doesn't need to do anything with these RECOMMENDATIONS: -continue current medication regimen -okay to discharge to nursing facility TIME IN: 1130am TIME OUT: 1210pm [facility] History Medical History: Reports:: Coronary Artery Disease, Diabetes Mellitus Type 2, Hyperlipidemia, Hypertension Denies:: Cancer, Diabetes Mellitus Type 1, MRSA *Have you ever received a pneumonia vaccine?: No *Have you received a flu vaccine this season?: No Anesthesia experience/problems:: no issues Amputation: No - *Social History Last grade of school completed: High school graduate Smoking Status: Never smoker Alcohol Intake: never Substance Use Type: denies use *Occupational Status:: unemployed Housing: house Household Members: family, children *Travel in the last 8 weeks: None Family Hx:: Non-contributory Review of Systems - *Neurologic Reports abnormal walking, Reports numbness, Reports tingling, Reports weakness, Denies abnormal hearing, Denies abnormal speech, Denies localized weakness Meds Home Medications Medication Instructions Recorded Confirmed Type Atorvastatin Calci
--- NOTE | 2020-11-12 15:38 | PC.NURSE ---
1442-detailed report called to WILLY Serrano at [facility]-nurse who will be assuming care of patient upon transfer to facility
[2020-11-12 21:44] LABS: POC Glucose,Bedside 334 (70-110)
== END 2020-11-12 15:57 | DRG 253 ==
PROVIDERS: Nurse Practitioner Family; Podiatrist; Admitting Provider Emergency Medicine; PCP Emergency Medicine; Visit Provider Emergency Medicine
PROC: (CPT 28820; principal; 2020-11-11 11:45)
DX: I21.4 Non-ST elevation (NSTEMI) myocardial infarction (principal); M86.9 Osteomyelitis, unspecified; E11.52 Type 2 diabetes mellitus with diabetic peripheral angiopathy with gangrene; L97.526 Non-pressure chronic ulcer of other part of left foot with bone involvement without evidence of necrosis; I70.92 Chronic total occlusion of artery of the extremities; I96 Gangrene, not elsewhere classified; Z20.822 Contact with and (suspected) exposure to COVID-19; I70.202 Unspecified atherosclerosis of native arteries of extremities, left leg; E11.69 Type 2 diabetes mellitus with other specified complication; I25.10 Atherosclerotic heart disease of native coronary artery without angina pectoris; E78.5 Hyperlipidemia, unspecified; I10 Essential (primary) hypertension; E11.621 Type 2 diabetes mellitus with foot ulcer; L03.032 Cellulitis of left toe; Z79.4 Long term (current) use of insulin; I15.0 Renovascular hypertension; I70.1 Atherosclerosis of renal artery; I77.1 Stricture of artery
CPT/HCPCS: 28820; 36415; 36569; 37226; 37236; 71045; 73630; 73700; 75625; 80048; 80061; 80202; 82962; 83036; 83605; 83735; 84484; 85025; 85651; 86140; 87040; 87070; 87075; 87077; 87186; 87205; 88304; 88305; 88311; 93005; 93306; 93458; 93923; 97162; 97530; 99152; 99153; C1725; C1760; C1766; C1769; C1876; C1894; C9803; J1644; J3370; Q9966; Q9967; U0003; U0005

== ENCOUNTER 2020-12-26 08:32 | Outpatient (RCR) | payer MEDICARE, SELFPAY ==
--- NOTE | 2020-12-26 09:24 | HMH.PTOPWND ---
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 She [place] at a [facility] currently and has dressing changes every other day per her report. She has hx of DM-II with last A1c of 11. 4% (which is an improvement), CAD, PAD with L RICCI 0.7, HL, HTN. Subjective Subjective She reports no c/o pain or tenderness in the L foot at this time. 1+ pitting edema of the L lower leg noted. Wound Eval Wound Left Proximal Great Toe Wound Type Incision Is This a Chronic Wound No Wound Length (cm) 1.3 Wound Width (cm) 1.3 Number of Sutures 3 Number of Sutures Removed 0 Wound Bed Appearance Eschar Percentage of Eschar (Brown) (%) 100 Wound Margins Description Well Defined Surrounding Tissue Appearance [place] Edema Type Pitting Edema Degree 1+ Query Text:1+ Trace, Barely Detectable, Rebound 15-30 seconds 2+ Moderate, Slight Indentation, Rebound 10-20 seconds 3+ Deep, Deeper Indentation, Rebound > 30 seconds 4+ Very Deep, Rebound > 60 seconds Drainage Amount None Primary Dressing Composite Comment optifoam gentle border lite Wound Secondary Dressing Type Gauze Roll/Wrap,Elastic Bandage Wound Debridement Method Gauze Wound Debridement Amount of Tissue None Removed Dressing Change Patient Tolerance Tolerated Well Left Distal Great Toe Wound Type Incision Is This a Chronic Wound No Wound Length (cm) 1.0 Wound Width (cm) 0.8 Wound Bed Appearance Eschar Percentage of Eschar (Brown) (%) 100 Wound Margins Description Well Defined Surrounding Tissue Appearance [place] Edema Type Pitting Edema Degree 1+ Query Text:1+ Trace, Barely Detectable, Rebound 15-30 seconds 2+ Moderate, Slight Indentation, Rebound
== END 2020-12-26 08:35 | disposition home or self-care (01) ==
LOC: PT 08:32
PROVIDERS: PCP Emergency Medicine; Visit Provider Podiatrist
DX: E11.621 Type 2 diabetes mellitus with foot ulcer (principal); M86.9 Osteomyelitis, unspecified; I96 Gangrene, not elsewhere classified; T81.31XA Disruption of external operation (surgical) wound, not elsewhere classified, initial encounter
CPT/HCPCS: 97162

== ENCOUNTER → 2021-08-20 10:14 | Outpatient (CLI) | payer MEDICARE, MEDICAID, SELFPAY ==
--- NOTE | 2021-08-20 10:16 | CA_ITS ---
FINAL REPORT TECHNIQUE: Color Doppler, duplex Doppler and bonner scale sonography of the bilateral neck vasculature was performed. Velocities were measured in the carotid arteries. Stenosis evaluation based on velocity criteria. CLINICAL HISTORY: RT CARTOID BRUIT FINDINGS: The peak systolic velocity of the right common carotid artery is 95 cm/sec and internal carotid artery 90 cm/sec. The diastolic velocity in the internal carotid artery is 16 cm/sec. The ICA/CCA ratio is 1.22. Visually, a small amount of plaque is seen. These findings are consistent with less than 50% stenosis. The external carotid artery is patent. The right vertebral artery is patent with antegrade flow. The peak systolic velocity of the left common carotid artery is 95 cm/sec and internal carotid artery 163 cm/sec. The diastolic velocity in the internal carotid artery is 15 cm/sec. The ICA/CCA ratio is 1.22. Visually, a small amount of plaque is seen. These findings are consistent with less than 50% stenosis. The external carotid artery is patent. The left vertebral artery is patent with antegrade flow. IMPRESSION: Less than 50% bilateral carotid stenosis. Bilateral patent vertebral arteries. If indicated, CTA or MRA could further evaluate. Reviewed, Interpreted and Dictated by Benji Roman III, MD Transcribed by Chris Aguilera Authenticated and [facility]
--- NOTE | 2021-08-20 10:16 | CA_ITS ---
FINAL REPORT TECHNIQUE: Color Doppler, duplex Doppler and compression sonography of the left lower extremity deep venous systems was performed. CLINICAL HISTORY: left leg swelling FINDINGS: There is no evidence of deep venous thrombosis from the level of the groin to the calf. The veins are patent and compressible. There is a popliteal cyst measuring 5.1 cm. IMPRESSION: No evidence of deep venous thrombosis left lower extremity. Moderate popliteal cyst. Reviewed, Interpreted and Dictated by Benji Roman III, MD Transcribed by Chris Aguilera Authenticated and [facility]
== END ==
PROVIDERS: PCP Emergency Medicine; Visit Provider Nurse Practitioner
DX: E11.9 Type 2 diabetes mellitus without complications (principal); E78.5 Hyperlipidemia, unspecified; F32.A Depression, unspecified; I11.9 Hypertensive heart disease without heart failure; I25.10 Atherosclerotic heart disease of native coronary artery without angina pectoris; I70.1 Atherosclerosis of renal artery; I73.9 Peripheral vascular disease, unspecified; K21.9 Gastro-esophageal reflux disease without esophagitis; R09.89 Other specified symptoms and signs involving the circulatory and respiratory systems; M79.89 Other specified soft tissue disorders; Z79.4 Long term (current) use of insulin
CPT/HCPCS: 93880; 93971

== ENCOUNTER 2022-01-21 09:54 | Day surgery (SDC) | payer MEDICARE, MEDICAID, SELFPAY ==
[2021-12-28 13:47] VITALS: BMI 26.5
[2022-01-21 10:13] VITALS: BP 200/85; PULSE 64; RESP 18; TEMP 36.1; O2SAT 99
--- NOTE | 2022-01-21 10:31 | P.PN_ITS ---
[facility] Disclaimer: The information contained in this section may have been updated after the patient was seen, as this information can be updated by other users. Medical History Coronary artery disease Depressed Diabetes mellitus History of left heart catheterization (LHC) HTN (hypertension) Hyperlipidemia Hypertensive heart disease Overweight with body mass index (BMI) 25.0-29.9 PAD (peripheral artery disease) Renal artery stenosis Surgical History Hx of amputation Family History Other Family history of cancer Family history of diabetes mellitus type II Family history of hyperlipidemia Family history of hypertension Social History Smoking Status: Never smoker alcohol intake: never substance use type: denies use current occupational status: disabled Travel in the last 8 weeks: None adopted: No caregiver/support person: No foster care: No household members: other housing: group home lives independently: No education level: high school service: No group home: No current occupational exposures/hazards: No caffeine: No special marguerite needs: No agree to transfusion: No do you feel safe at home: Yes victim of physical abuse: No victim of emotional abuse: No victim of sexual abuse: No would you like helpful sources: No [facility] Anesthesia Checklist Patient Identification Patient Identification: Arm Band Structural Data Admitted From: Home Planned Operative Procedure/s: EGD/Colonoscopy Consent for Planned Operative Procedure(s) Verified: Yes Verified Documents: Surgical Consent and History and Physical NPO Status Verified Time NPO: 00:00 Additional verifications Anesthesia Reactions: No Airway Assessment C-Spine Mobility Assessed: Yes TMJ Mobility Assessed: Yes Dentition: Poor Dentition Neurological Assessment Level of Consciousness: Awake and Alert Anesthesia Plan Anesthesia Risk discussed: Yes Anesthesia Plan: Verified ASA Class: III Anesthesia Type: MAC
[2022-01-21 10:34] VITALS: O2SAT 99
[2022-01-21 11:00] VITALS: BP 105/57; PULSE 77; RESP 14; TEMP 36.1; O2SAT 98
--- NOTE | 2022-01-21 11:01 | HMH.SCOPE ---
Procedure: Date: 01/21/22 Patient Date of :: 1950 Procedure Performed:: EGD Indications:: Abdominal pain, weight loss Performing Provider:: Barbara Medina MD Referring Provider:: Rajinder Sparrow Sedation:: Propofol Procedure:: The gastroscope was gently passed through the incisoral orifice into the oral cavity and under direct visualization the esophagus was intubated. The endoscope was passed down the esophagus, through the stomach, and into the duodenum. Color, texture, mucosa, and anatomy of the esophagus, stomach, and duodenum were carefully examined with the scope. Findings:: Oropharynx: normal Esophagus: normal EG Junction: intact at 40 cm Cardia: normal Fundus: normal Body: normal Antrum: normal Duodenal bulb: normal Duodenum (second and third portion): normal Impression: Normal EGD Recommendations:: F/U PRN as clinically indicated Complications:: None Estimated blood obtained (mL): 0
--- NOTE | 2022-01-21 11:03 | HMH.SCOPE ---
Procedure: Date: 01/21/22 Patient Date of :: 1950 Procedure Performed:: Colonoscopy Indications:: Personal history of colon cancer, weight loss, abdominal pain Performing Provider:: Barbara Medina MD Referring Provider:: Rajinder Sparrow Sedation:: Propofol Procedure:: After placing the patient in the left lateral decubitus position, the colonoscopy was gently inserted into the rectum and under direct visualization advanced to the cecum which was identified by transillumination in the right lower quadrant, identification of the ileocecal valve, appendiceal orifice, and cecal strap. Color, texture, mucosa, and anatomy of the colon were carefully examined with the scope. Findings:: Prep quality poor with much retained fecal material noted Anal canal: normal Rectum: normal Sigmoid colon: normal without polyps or inflammatory changes, residual stool noted Descending colon: normal without polyps or inflammatory changes, residual stool noted Splenic flexure: normal Transverse colon: normal without polyps or inflammatory changes, residual stool noted Hepatic flexure: normal Ascending colon: normal without polyps or inflammatory changes, residual stool noted, anastomosis intact and functional Cecum: Resected Terminal ileum: Resected Impression: Grossly normal colonoscopy s/p R. Partial colectomy anatomy. Visualization impaired due to poor prep quality Recommendations:: No additional screening examination recommended due to age and poor health status Complications:: None Estimated blood obtained (mL): 0
[2022-01-21 11:10] VITALS: BP 95/50; PULSE 74; RESP 16; O2SAT 94
[2022-01-21 11:20] VITALS: BP 97/52; PULSE 76; RESP 16; O2SAT 96
[2022-01-21 11:30] VITALS: BP 132/66; PULSE 85; RESP 18; O2SAT 96
[2022-01-22 07:45] LABS: POC Glucose,Bedside 116 (70-110)
== END 2022-01-21 12:08 | disposition home or self-care (01) ==
PROVIDERS: PCP Emergency Medicine; Visit Provider Internal Medicine Gastroenterology
PROC: 0DJ08ZZ Inspection of Upper Intestinal Tract, Via Natural or Artificial Opening Endoscopic (ICD-10-PCS; CPT 43235; principal; 2022-01-21 11:00)
DX: R63.4 Abnormal weight loss (principal); R10.9 Unspecified abdominal pain; Z86.010 Personal history of colon polyps; Z91.199 Patient's noncompliance with other medical treatment and regimen due to unspecified reason
CPT/HCPCS: 43235; 45378; 82962

== ENCOUNTER 2022-08-10 10:47 | Day surgery (SDC) | payer MEDICARE, MEDICAID, SELFPAY ==
[2022-08-10] VITALS (7 sets, daily range): BP systolic 147–197; BP diastolic 57–86; PULSE 66–72; RESP 18; TEMP 36.1–36.2; O2SAT 98–100; BMI 26.4
[2022-08-10 11:43] LABS: POC Glucose,Bedside 130 (70-110)
== END 2022-08-10 12:43 | disposition home or self-care (01) ==
PROVIDERS: PCP Emergency Medicine; Visit Provider Ophthalmology
DX: E11.36 Type 2 diabetes mellitus with diabetic cataract (principal); H25.9 Unspecified age-related cataract
CPT/HCPCS: 66984; 82962; V2632

== ENCOUNTER 2022-08-24 10:02 | Day surgery (SDC) | payer MEDICARE, MEDICAID, SELFPAY ==
[2022-08-24 11:17] VITALS: BP 135/73; PULSE 68; RESP 16; TEMP 36.2; O2SAT 96
[2022-08-24 11:28] LABS: POC Glucose,Bedside 120 (70-110)
[2022-08-24 12:10] VITALS: BP 172/78; PULSE 68; RESP 18; O2SAT 100
[2022-08-24 12:15] VITALS: BP 169/89; PULSE 70; RESP 18; O2SAT 100
[2022-08-24 12:20] VITALS: BP 166/77; PULSE 69; RESP 18; O2SAT 100
[2022-08-24 12:23] VITALS: BP 149/78; PULSE 80; RESP 18; TEMP 36.6; O2SAT 98
== END 2022-08-24 12:39 | disposition home or self-care (01) ==
PROVIDERS: PCP Emergency Medicine; Visit Provider Ophthalmology
DX: E11.36 Type 2 diabetes mellitus with diabetic cataract (principal); H25.9 Unspecified age-related cataract
CPT/HCPCS: 66984; 82962; V2632

== ENCOUNTER → 2022-10-28 10:45 | Outpatient (POV) | payer MEDICARE, MEDICAID, SELFPAY | PROVIDERS: Visit Provider Specialist/Technologist | DX: Z00.00 Encounter for general adult medical examination without abnormal findings (principal) ==

== ENCOUNTER 2022-12-09 07:56 | Day surgery (SDC) | payer MEDICARE, MEDICAID, SELFPAY ==
[2022-12-09] VITALS (17 sets, daily range): BP systolic 141–163; BP diastolic 63–82; PULSE 61–75; RESP 17–18; TEMP 36.6; O2SAT 95–97; BMI 25.8
--- NOTE | 2022-12-09 07:00 | IR_ITS ---
APPROVED REPORT Patient Location: Outpatient [facility] Hand: EDWIN Martines RT (R) PROCEDURES Catheter placed in the distal abdominal aorta Distal abdominal aortography Repositioning of the catheter in the abdominal aorta Bilateral iliofemoral runoff INDICATION [place] claudication class V, Peripheral artery disease Informed consent was obtained prior to the procedure. COMPLICATIONS None Estimated Blood Loss: Less than 10 ml TECHNIQUE 1% lidocaine used to anesthetize the left femoral groin. The left femoral artery was accessed via the Seldinger technique. A 5 [place] sheath was placed in left femoral artery. A pigtail catheter was advanced under fluoroscopic guidance into the distal abdominal aorta were distal abdominal aortography was performed followed by repositioning the catheter followed by bilateral iliofemoral runoff. At the end the procedure the apparatus was removed the patient was transferred to the postop holding in stable condition for sheath removal ANGIOGRAPHIC RESULTS Distal abdominal aorta is widely patent Bilateral common, internal, external iliac arteries are widely patent Bilateral common femoral arteries are patent Bilateral profunda femoris arteries are patent Right superficial femoral artery has proximal moderate atheromatous plaque of 50% with 80 and 90% stenosis at Shalom's canal. The distal popliteal artery is severely atheromatous at the mid and distal segment at the infra geniculate and suprageniculate level. The right anterior tibialis artery is subtotally occluded as is the peroneal artery and the posterior tibialis artery. Scant flow makes it into the right foot the scant collaterals Left superficial femoral artery proximally atheromatous 60 to 70% with a stent in the midportion of Shalom's canal which is severely restenosed and virtually subtotally occluded. The left popliteal artery is severely diffusely diseased within the stent. Distally the the posterior tibialis artery and peroneal artery are occluded while the anterior tibialis artery is patent and supplies scant flow into the left foot IMPRESSION Referral artery disease as described above Severe infrageniculate disease bilaterally which does not have any good surgical or percutaneous revascularization options PLAN 1. Medical management 2. Xarelto 2.5 twice daily plus aspirin 81 mg daily 3. Physical therapy 4. LDL less than 55 to be achieved with high intensity statin Electronically signed by : Alessio Adhikari MD 12/17/2022 11:45:50
[2022-12-09 08:35] LABS: Basophils # 0.1 K/mm3 (0-0.2); Basophils % 0.7 % (0.1-2.0); Eosinophils # 0.2 K/mm3 (0.0-0.4); Hemoglobin 13.3 g/dL (12.2-16.2); Lymphocytes # 1.4 K/mm3 (0.7-4.5); Lymphocytes % 23.5 % (10-50); Mean Corpuscular HGB Conc 33.4 g/dL (31.8-35.4); Mean Corpuscular Hemoglobin 28.6 pg (27.0-31.2); Mean Corpuscular Volume 85.8 fl (81-99); Mean Platelet Volume 9.3 fl (7.4-10.4); Monocytes # 0.3 K/mm3 (0.1-1.0); Neutrophils # 4.1 K/mm3 (1.8-7.8); Neutrophils % 67.7 % (37.0-80.0); Platelet Count 246 K/mm3 (142-424); Red Blood Count 4.66 M/mm3 (4.20-5.40); White Blood Count 6.1 K/mm3 (4.8-10.8)
[2022-12-09 08:37] LABS: Chloride 103 mmol/L (98-107); Potassium 4.1 mmoL/L (3.5-5.1); Sodium 139 mmol/L (136-145)
[2022-12-09 08:40] LABS: Anion Gap 14.1 mEq/L (5-15); Blood Urea Nitrogen 16 mg/dl (7-17); Calcium 8.8 mg/dl (8.4-10.2); Carbon Dioxide 26 mmol/L (22.0-30.0); Creatinine Clearance Estimated 53 mL/min (50-200); Estimated Glomerular Filt Rate 62 ml/min (>60); GFR (African American) 74 ML/MIN (>60); Glucose 131 mg/dl (74-100)
== END 2022-12-09 15:04 | disposition home or self-care (01) ==
PROVIDERS: PCP Emergency Medicine; Visit Provider Internal Medicine
DX: E78.5 Hyperlipidemia, unspecified (principal); I11.9 Hypertensive heart disease without heart failure; I25.10 Atherosclerotic heart disease of native coronary artery without angina pectoris; I70.1 Atherosclerosis of renal artery; K21.9 Gastro-esophageal reflux disease without esophagitis; L97.919 Non-pressure chronic ulcer of unspecified part of right lower leg with unspecified severity; I77.1 Stricture of artery; T82.856A Stenosis of peripheral vascular stent, initial encounter; Z79.4 Long term (current) use of insulin; Z79.01 Long term (current) use of anticoagulants; Z79.899 Other long term (current) drug therapy; E11.65 Type 2 diabetes mellitus with hyperglycemia; I70.213 Atherosclerosis of native arteries of extremities with intermittent claudication, bilateral legs; I25.2 Old myocardial infarction
CPT/HCPCS: 36247; 75716; 80048; 85025; 99152; C1725; C1769; C1894; J1644; Q9966

== ENCOUNTER 2023-12-20 13:10 | Outpatient (CLI) | payer MEDICARE, MEDICAID, SELFPAY ==
--- NOTE | 2023-12-20 13:13 | CA_ITS ---
APPROVED REPORT EXAM: Comprehensive 2D, Doppler, and color-flow Echocardiogram Carpet Cleaner: Bri Dwyer CRT Ht: 15 ft 3 in Wt: 144lbs BSA: 3.64 BP: 156/65 mmHg Indications: cad, htn, hld, pad 2D Dimensions LA Volume 65.30 mL LA Volume Index 38.00 mL/m2 (M/F) 16-34 M-Mode Dimensions RVDd 2.06 cm (0.9-2.6) LA Diam 4.24 cm (1.9-4.0) LVDd 4.69 cm (3.5-5.7) LVDs 3.36 cm (3.5-5.7) IVSd 1.86 cm (0.6-1.1) PWd 0.84 cm (0.6-1.1) EF (Teich) 54.80% FS 28.40% EDV (Teich) 101.90 mL TAPSE 1.24 (<1.7) ESV (Teich) 46.10 mL LV Diastology E Decel Time 213 (160-240 msec) E/A Ratio 1.00 MED A' 5.50 cm/s LAT A' 3.50 cm/s Aortic Valve MAKENZIE Index 0.79 cm2/m2 AoV Peak Conrad. 182.0 (50-130 cm/s) AO Peak GR. 13.50 mmHg AO Mean GR. 8.20 (<5 mmHg) AO VTI 41.4 (18-25 cm) MAKENZIE (VTI) 1.36 (2.5-4.5 cm2) Mitral Valve MV A Velocity 62.0 (40-130 cm/s) E/A Ratio 1.00 Pulmonary Valve PV Peak Velocity 100.0 (50-150 cm/s) Tricuspid Valve TR P. Velocity 201.00 cm/s RAP Estimate 10.00 mmHg RVSP 26.10 mmHg Left Ventricle The left ventricle is normal size. The left ventricular systolic function is normal. The left ventricular ejection fraction is within the normal range. There is markedly increased LV wall thickness. IVSD is 1.5 cm. There is normal LV segmental wall motion. Diastolic function is indeterminate. LVEF is 55%. Right Ventricle The right ventricle is mildly dilated. The right ventricular systolic function is normal. Atria Left atrium is mildly dilated. Right atrium is mildly dilated. There is no Doppler evidence of interatrial shunt. Aortic Valve The aortic valve is mildly thickened. Mild aortic stenosis is present. MAKEZNIE by continuity equation is 1.7 cm???. Peak velocity 2.0 m/s. Mean AV gradient 10 mmHg. Max AV gradient 16 mmHg. Trace aortic regurgitation. Mitral Valve Mild to moderate mitral annular calcification. The mitral valve leaflets are mildly thickened. No evidence of mitral valve stenosis. Trace mitral valve regurgitation. Tricuspid Valve The tricuspid valve leaflets are thin and pliable. Trace tricuspid regurgitation. There is insufficient TR jet to estimate RVSP. Pulmonic Valve The pulmonary valve is normal in structure. Trace pulmonic regurgitation. Great Vessels The aortic root is normal in size. The ascending aorta is normal in size. IVC is normal in size and collapses >50% with inspiration. Pericardium There is no pericardial effusion. Other Information Study Quality: Fair Conclusion Normal LV systolic function. Marked increase in LV wall thickness. IVSD 1.5 cm. Mild RV dilation with normal RV function. Mild biatrial dilation. Mild (MAKENZIE by continuity equation is 1.7 cm???. Peak velocity 2.0 m/s. Mean AV gradient 10 mmHg. Max AV gradient 16 mmHg). In the setting of presence of symptoms, marked increased LV wall thickness, biatrial dilation, and aortic stenosis, further evaluation for infiltrative cardiomyopathy with cardiac MRI (amyloidosis protocol), PYP nuclear scan, and amyloidosis lab testing are recommended. Electronically signed by : Melissa Gordillo MD 12/25/2023 03:40:19
== END 2023-12-20 23:59 | disposition home or self-care (01) ==
LOC: RT 13:10
PROVIDERS: PCP Family Medicine; Visit Provider Nurse Practitioner Family
DX: I51.7 Cardiomegaly (principal); R01.1 Cardiac murmur, unspecified
CPT/HCPCS: 93306

== ENCOUNTER 2024-02-01 15:12 | Outpatient (CLI) | payer MEDICARE, MEDICAID, SELFPAY ==
--- NOTE | 2024-02-01 15:15 | MM_ITS ---
PROCEDURE INFORMATION: Exam: MG Bilateral Screening 3D Mammography Exam date and time: 02/01/2024 3:10 PM Age: 73 years old Clinical indication: Screening examination TECHNIQUE: Imaging protocol: Bilateral Screening tomosynthesis and 2D mammography including computer-aided detection (CAD) when performed. COMPARISON: SD MM DIG SCREENING MAMM BI W/CAD 02/01/2024 3:10 PM FINDINGS: MAMMOGRAPHY: Breast composition: There are scattered areas of fibroglandular density. Mass: None. Architectural distortion: None. Calcifications: No suspicious calcifications. Asymmetric density: None. Skin thickening: None. Axillary adenopathy: None. IMPRESSION: No mammographic evidence of malignancy. Annual screening is recommended unless otherwise clinically indicated. ASSESSMENT: BI-RADS Category 1: Negative.
== END 2024-02-01 23:59 | disposition home or self-care (01) ==
LOC: RAD 15:15
PROVIDERS: PCP Family Medicine; Visit Provider Family Medicine
DX: Z12.31 Encounter for screening mammogram for malignant neoplasm of breast (principal)
CPT/HCPCS: 77063; 77067

== ENCOUNTER 2024-05-09 09:23 | Outpatient (CLI) | payer MEDICARE, MEDICAID, SELFPAY ==
[2024-05-09 09:48] LABS: Albumin Level 4.1 g/dl (3.5-5.0)
[2024-05-09 09:49] LABS: Chloride 105 mmol/L (98-107); Potassium 4.3 mmoL/L (3.5-5.1); Sodium 140 mmol/L (136-145)
[2024-05-09 09:51] LABS: Alanine Aminotransferase 16 U/L (12-78); Albumin/Globulin Ratio 1.4 (1.1-1.8); Alkaline Phosphatase 86 U/L (38-126); Anion Gap 10.3 mEq/L (5-15); Aspartate Amino Transferase 29 U/L (14-36); Bilirubin,Total 0.3 mg/dl (0.2-1.3); Blood Urea Nitrogen 17 mg/dl (7-17); Carbon Dioxide 29 mmol/L (22.0-30.0); Estimated Glomerular Filt Rate 61 ml/min (>60); GFR (African American) 74 ML/MIN (>60); Total Protein,Serum 7.1 g/dl (6.3-8.2)
[2024-05-09 09:52] LABS: Calcium 9.1 mg/dl (8.4-10.2); Cholesterol 129 mg/dl (140-200); Glucose 129 mg/dl (74-100); HDL Cholesterol 32 mg/dl (40-60); Triglycerides 123 mg/dl (30-150); VLDL Cholesterol 25 mg/dL (0-40)
== END 2024-05-09 23:59 | disposition home or self-care (01) ==
PROVIDERS: PCP Nurse Practitioner Family; Visit Provider Nurse Practitioner Family
DX: E11.9 Type 2 diabetes mellitus without complications (principal); R79.9 Abnormal finding of blood chemistry, unspecified
CPT/HCPCS: 36415; 80053; 80061; 83036

== ENCOUNTER 2024-05-12 19:52 | Observation (INO) | payer MEDICARE, MEDICAID, SELFPAY ==
[2024-05-12] VITALS (10 sets, daily range): BP systolic 172–193; BP diastolic 74–144; PULSE 54–75; RESP 14–18; TEMP 35.5–36.5; O2SAT 96–100; BMI 25.9; BMI 23.9
--- NOTE | 2024-05-12 19:46 | CT_ITS ---
PROCEDURE INFORMATION: Exam: CTA Neck With Contrast Exam date and time: 05/12/2024 7:50 PM Age: 73 years old Clinical indication: Stroke-like symptoms; Other: Stroke symptoms; Additional info: Possible stroke TECHNIQUE: Imaging protocol: Computed tomographic angiography of the neck with contrast. Exam focused on the cervical segments of the vasculature. 3D rendering (Not supervised by radiologist): MIP and/or 3D reconstructed images were created by the technologist. Radiation optimization: All CT scans at this facility use at least one of these dose optimization techniques: automated exposure control; mA and/or kV adjustment per patient size (includes targeted exams where dose is matched to clinical indication); or iterative reconstruction. Contrast material: ISO 370; Contrast volume: 80 ml; Contrast route: INTRAVENOUS (IV); COMPARISON: CT HEAD/BRAIN WO CON 05/12/2024 7:48 PM FINDINGS: Right common carotid artery: Calcification at the right common carotid bifurcation. Mild stenosis measures less than 50%. Right internal carotid artery: Calcification of the proximal right ICA. Mild stenosis measures less than 50%. Right external carotid artery: Moderate to severe stenosis at the origin of the right external carotid artery. Left common carotid artery: Calcification involving the left common carotid artery greater distally. Mild stenosis measures less than 50%. Left internal carotid artery: Calcification of the proximal left ICA. Mild stenosis measures less than 50%. Left external carotid artery: No occlusion or stenosis of the origin. Right vertebral artery: Right vertebral artery is dominant. Calcification of the proximal right vertebral artery. No hemodynamically significant stenosis. Left vertebral artery: No stenosis. No dissection or occlusion. Left subclavian artery: Mild stenosis of the proximal left subclavian artery. Aorta: Aortic calcification. Soft tissues: Normal. No significant soft tissue swelling. Bones/joints: Degenerative change involving the spine. Lungs: Non-specific ground-glass densities involving both lungs. IMPRESSION: 1. Mild stenosis of both proximal ICAs measures less than 50%. 2. Moderate severe stenosis at the origin of the right external carotid artery. 3. Additional findings as above. REFERENCES: NASCET CRITERIA. The degree of stenosis in the cervical segment of the internal carotid artery is based on NASCET criteria. Normal is no stenosis. Mild is less than 50% stenosis. Moderate is 50-69% stenosis. Severe is 70% to 99% stenosis. Total occlusion is no detectable patent lumen.
--- NOTE | 2024-05-12 19:46 | CT_ITS ---
PROCEDURE INFORMATION: Exam: CT Head Without Contrast Exam date and time: 05/12/2024 7:48 PM Age: 73 years old Clinical indication: Stroke-like symptoms; Other: Possible stroke TECHNIQUE: Imaging protocol: Computed tomography of the head without contrast. Radiation optimization: All CT scans at this facility use at least one of these dose optimization techniques: automated exposure control; mA and/or kV adjustment per patient size (includes targeted exams where dose is matched to clinical indication); or iterative reconstruction. Other technique: STROKE PROTOCOL was implemented. COMPARISON: CT HEAD/BRAIN WO CON 05/12/2024 7:48 PM FINDINGS: Limitations: Patient motion. Brain: Age-related volume loss. Decreased attenuation of the supratentorial white matter is likely secondary to chronic microvascular ischemia. Chronic lacunar infarcts involving the bilateral basal ganglia and right thalamus. No acute intracranial hemorrhage or significant intracranial mass effect. Cerebral ventricles: Ventriculomegaly is commensurate for degree of volume loss. Paranasal sinuses: Mild paranasal sinus disease. Mastoid air cells: Visualized mastoid air cells are well aerated. Bones: No definite acute calvarial fracture. Soft tissues: Unremarkable. IMPRESSION: No acute intracranial abnormality. ASSESSMENT: ASPECTS ([place] Stroke Program Early CT Score) is 10.
--- NOTE | 2024-05-12 19:46 | CT_ITS ---
PROCEDURE INFORMATION: Exam: CTA Head With Contrast, Arteriography Exam date and time: 05/12/2024 7:50 PM Age: 73 years old Clinical indication: Stroke-like symptoms; Other: Possible stroke TECHNIQUE: Imaging protocol: Computed tomographic angiography of the head with contrast. Exam focused on the arteries. 3D rendering (Not supervised by radiologist): MIP and/or 3D reconstructed images were created by the technologist. Radiation optimization: All CT scans at this facility use at least one of these dose optimization techniques: automated exposure control; mA and/or kV adjustment per patient size (includes targeted exams where dose is matched to clinical indication); or iterative reconstruction. Contrast material: ISO 370; Contrast volume: 80 ml; Contrast route: INTRAVENOUS (IV); COMPARISON: CT HEAD/BRAIN WO CON 05/12/2024 7:48 PM FINDINGS: ANTERIOR CIRCULATION: Right internal carotid artery: Calcification involving the right carotid siphon without hemodynamically significant stenosis. Right middle cerebral artery: No occlusion or significant stenosis. No aneurysm. Right anterior cerebral artery: No occlusion or significant stenosis. No aneurysm. Left internal carotid artery: Calcification involving the left carotid siphon with mild stenosis. Left middle cerebral artery: No occlusion or significant stenosis. No aneurysm. Left anterior cerebral artery: No occlusion or significant stenosis. No aneurysm. POSTERIOR CIRCULATION: Right vertebral artery: Right vertebral artery is dominant. Calcification involving the right vertebral artery with [id number] stenosis. Left vertebral artery: Left vertebral artery is diminutive following the takeoff of PICA. Basilar artery: Calcification involving the basilar artery with mild stenosis. Right posterior cerebral artery: origin of the right posterior cerebral artery. Moderate to severe stenosis of the right [employer] P2 segment. Left posterior cerebral artery: No occlusion or significant stenosis. No aneurysm. IMPRESSION: 1. Moderate to severe right [employer] P2 stenosis. 2. Qtnm-ss-wuyuciin right vertebral artery V4 stenosis. 3. Mild basilar artery stenosis. 4. Mild left carotid siphon stenosis. 5. No large vessel occlusion.
[2024-05-12] MEDS: SODIUM CHLORIDE 0.9% 10ML SYR (RAD ONLY) 10 ML IV (19:50)
[2024-05-12] MEDS: 0.9 % SODIUM CHLORIDE 50 ML VIAL 40 ML IV (19:50)
[2024-05-12] MEDS: IOPAMIDOL-370 (76%);100ML BOTTLE 80 ML IV (19:50)
--- NOTE | 2024-05-12 20:00 | ECG_ITS ---
APPROVED REPORT Exam: Resting ECG HR:66 bpm ECG Measurements Heart Rate 66 AXES CA 173 P 87 QRSd 130 QRS -6 QT 463 T 135 QTc 476 Conclusion SINUS RHYTHM LEFT BUNDLE BRANCH BLOCK [120+ ms QRS DURATION, 80+ ms Q/S IN V1/V2, 85+ ms R IN I/aVL/V5/V6] ABNORMAL ECG Lateral lead ST changes but no STEMI Electronically signed by : BRANDO CHAMPION, 05/13/2024 00:14:43
--- NOTE | 2024-05-12 20:00 | ED_ITS ---
Discharge Plan Disposition Chief Complaint: Neuro Symptoms/Deficit Prescriptions Prescriptions: No Action acetaminophen 500 mg tablet 500 mg PO Q4H PRN (Reason: Pain/fever) loperamide 2 mg capsule 2 mg PO Q6H PRN (Reason: diarrhea) carvedilol 12.5 mg tablet 12.5 mg PO BID Xarelto 2.5 mg tablet 2.5 mg PO BID Qty: 60 2RF atorvastatin 80 mg tablet 80 mg PO HS sertraline 25 mg tablet 25 mg PO DAILY levocetirizine 5 mg tablet 5 mg PO HS mirtazapine 7.5 mg tablet 7.5 mg PO HS metformin 1,000 mg tablet 1,000 mg PO BID Qty: 180 3RF losartan [Cozaar] 25 mg tablet 25 mg PO DAILY Januvia 50 mg tablet 50 mg PO DAILY Gaviscon 95-358 mg/15 mL suspension 30 ml PO QID PRN (Reason: upset stomach) ondansetron HCl 4 mg tablet 4 mg PO Q6H PRN (Reason: Nausea & vomiting) Humulin 70/30 U-100 KwikPen 100 unit/mL (70-30) insulin pen 15 unit SQ .am insulin NPH and regular human 100 unit/mL (70-30) insulin pen 8 unit SQ .4:30 gabapentin 100 mg capsule 100 mg PO QHS Qty: 30 5RF pantoprazole 40 MG tablet,delayed release (DR/EC) 40 mg PO DAILY nitroglycerin 0.4 MG tablet, sublingual 0.4 mg SL Q5MINP PRN (Reason: Chest Pain) clopidogrel 75 MG tablet 75 mg PO DAILY Referrals Follow up/Referrals: Provider,Referral, MD [Primary Care Provider] - See instructions Print Language Print Language: Montenegrin Discharge ED Provider: Al Blakely General Adult HPI General Chief complaint: Neuro Symptoms/Deficit Stated complaint: AMS Time Seen by Provider: 05/12/24 20:00 Mode of Arrival: EMS Source of Information: EMS Description of Symptoms (Recalled from ER Triage Doc. by RN): PT ARRIVED BY EMS FROM [facility], STROKE ALERT CALLED, LKN 1900. PREVIOUS STROKE W/ LEFT SIDED DEFICITS. History of Present Illness HPI narrative: This is a 73-year-old female with a history of prior stroke with left-sided deficits, peripheral arterial disease, coronary artery disease, hypertension, hyperlipidemia, diabetes who presents as a stroke alert. History is provided by EMS and custodial. States the patient was alert and oriented with a GCS of 15 which is her baseline, ambulatory at 7 PM whenever shortly after she was noted to become less responsive with concern for possible left facial droop and slurred speech. Patient reports that she has a history of a prior stroke with left-sided deficits. Reports that patient takes Plavix. Related Data Home Medications ?Medication ?Instructions ?Recorded ?Confirmed nitroglycerin 0.4 mg sublingual 0.4 mg sublingual Q5MINP PRN Chest 11/09/20 04/24/24 tablet Pain pantoprazole 40 mg tablet,delayed 40 mg PO DAILY GERD 11/09/20 04/24/24 release acetaminophen 500 mg tablet 500 mg PO Q4H PRN Pain/fever 02/19/21 04/24/24 loperamide 2 mg capsule 2 mg PO Q6H PRN diarrhea 08/20/21 04/24/24 clopidogrel 75 mg tablet 75 mg PO DAILY thinner 01/21/22 04/24/24 carvedilol 12.5 mg tablet 12.5 mg PO BID HR control 05/26/22 04/24/24 aluminum hydrox-magnesium carb 95 30 ml PO QID PRN upset stomach 02/09/23 04/24/24 mg-358 mg/15 mL oral suspension (Gaviscon) ondansetron HCl 4 mg tablet 4 mg PO Q6H PRN Nausea & vomiting 02/09/23 04/24/24 losartan 25 mg tablet (Cozaar) 25 mg PO DAILY 05/02/23 04/24/24 atorvastatin 80 mg tablet 80 mg PO HS 06/16/23 04/24/24 levocetirizine 5 mg tablet 5 mg PO HS 12/10/23 04/24/24 insulin NPH-regular 70-30 U-100 8 unit SQ .4:30 01/11/24 04/24/24 insulin 100 unit/mL subcutaneous pen insulin NPH-regular 70-30 U-100 15 unit SQ .am Diabetes 01/11/24 04/24/24 insulin 100 unit/mL subcutaneous pen (Humulin 70/30 U-100 Jeanna) mirtazapine 7.5 mg tablet 7.5 mg PO HS 01/11/24 04/24/24 sertraline 25 mg tablet 25 mg PO DAILY 03/01/24 04/24/24 sitagliptin phosphate 50 mg tablet 50 mg PO DAILY 04/24/24 04/24/24 (Januvia) Previous Rx's ?Medication ?Instructions ?Recorded rivaroxaban 2.5 mg tablet (Xarelto) 2.5 mg PO BID #60 tabs 11/25/22 metformin 1,000 mg tablet 1,000 mg PO BID #180 tabs 02/16/24 gabapentin 100 mg capsule 100 mg PO QHS Pain #30 caps 03/19/24 Allergies Allergy/AdvReac Type Severity Reaction Status Date / Time No Known Allergies Allergy Verified 04/24/24 09:48 [facility] Disclaimer: The information contained in this section may have been updated after the patient was seen, as this information can be updated by other users. Medical History Excessive cerumen in both ear canals Depression with anxiety Followed by Psychiatry History of stent insertion of renal artery Diabetes mellitus Aortic stenosis mild, ECHO 01/07 Diabetic foot ulcer MRSA (methicillin resistant staph aureus) culture positive Postoperative wound dehiscence Gangrene of toe of left foot Cellulitis and abscess of foot Skin lesions Severe hearing loss Overweight with body mass index (BMI) 25.0-29.9 PAD (peripheral artery disease) Renal artery stenosis Hypertensive heart disease Coronary artery disease HTN (hypertension) Hyperlipidemia Surgical History H/O angiography Nov 2022, Bilateral LE run-off, peripheral arterial disease--medical management History of left heart catheterization (LHC) Oct, non-flowing limiting disease History of intravascular stent placement right renal, left superficial femoral, popliteal Oct 2020 Status post foot surgery Hx of amputation left hallux Family History Other Family history of cancer Family history of diabetes mellitus type II Family history of hyperlipidemia Family history of hypertension Social History Smoking Status: Never smoker alcohol intake: never substance use type: denies use current occupational status: disabled Travel in the last 8 weeks: None adopted: No caregiver/support person: No foster care: No household members: other housing: custodial lives independently: No education level: high school service: No custodial: No current occupational exposures/hazards: No caffeine: No special marguerite needs: No agree to transfusion: No do you feel safe at home: Yes victim of physical abuse: No victim of emotional abuse: No victim of sexual abuse: No would you like helpful sources: No Other Medical History Have you received the Flu Vaccine for this season: No Have you received the Pneumonia Vaccine: No (refused) ROS Obtained: Yes All systems reviewed & no additional complaints except as documented Physical Exam General General appearance: in no apparent distress Comment: Slightly somnolent but arousable Eye Eye exam: Present normal appearance, PERRL and EOMI Respiratory Respiratory exam: Present normal lung sounds bilaterally; Absent respiratory distress Cardiovascular Cardiovascular exam: Present regular rate and normal rhythm Abdominal Exam Abdominal exam: Present soft; Absent distention, tenderness, guarding or rebound Extremities Exam Extremities exam: Present normal inspection Neurological Exam Neurological exam: Present other (Slightly somnolent but arousable. Slight flattening of the left nasolabial fold. No sensory deficits. Drift of left upper extremity and weakness of left lower extremity compared to right. No visual field deficits. Patient does not know her age but does know the month and date. No extinction.) Skin Skin exam: Present warm and dry Medical Decision Making Medical Records Medical records reviewed: Yes I reviewed the patient's medical records. Screening: Per USPSTF and CDC recommendations, given the prevalence of disease in our region, it is our hospital?s policy to screen for HIV and viral Hepatitis for all patients aged 18 and over and those with ongoing risk factors. MR Comment: Family medicine progress note from 04/24/2024 notable for patient's past medical history as noted above. Also noted prescription for Xarelto. Jarvis Inquiry Pt receiving controlled substance: No Vital Signs: 05/12/24 19:55 05/12/24 20:00 Temperature 97.5 F L Temperature Source Oral Pulse Rate 74 Pulse Rate [Apical] 70 Respiratory Rate 18 18 Blood Pressure 175/93 H Blood Pressure [Right Arm] 172/74 H Blood Pressure Mean [Right Arm] 106 02 Sat by Pulse Oximetry 96 97 Oxygen Delivery Method Room Air Room Air Lab Data Lab Results 05/12/24 19:35: WBC 4.9, RBC 3.83 L, Hgb 10.3 L, Hct 32.0 L, MCV 83.6, MCH 26.9 L, MCHC 32.2, RDW 15.9, Plt Count 211, MPV 11.0 H, Neut % (Auto) 56.7, Lymph % (Auto) 31.6, [place] % (Auto) 7.7, Eos % (Auto) 2.2, Baso % (Auto) 1.4, Neut # (Auto) 2.8, Lymph # (Auto) 1.6, [place] # (Auto) 0.4, Eos # (Auto) 0.1, Baso # (Auto) 0.1, PT 12.3, INR 1.11 H, APTT 29.5, Sodium 139, Potassium 4.2, Chloride 104, Carbon Dioxide 25, Anion Gap 14.2, BUN 14, Creatinine 1.00, Estimated Creat Clear 55, Estimated GFR 54 L, Est GFR ( Amer) 66, Glucose 149 H, Calcium 9.3, Total Bilirubin 0.4, AST 25, ALT 16, Alkaline Phosphatase 83, Troponin I < 0.01, Total Protein 7.3, Albumin 4.1, Globulin 3.2, Albumin/Globulin Ratio 1.3, Triglycerides 140, Cholesterol 132 L, LDL Cholesterol Direct 69.55 L, VLDL Cholesterol 28, HDL Cholesterol 36 L, Cholesterol/HDL Ratio 3.7 H, Plasma/Serum Alcohol < 10 05/12/24 20:13: Urine Color Yellow, Urine Appearance Slightly cloudy, Urine pH 6.0, Ur Specific [place] 1.010, Urine Protein Negative, Urine Glucose (UA) Negative, Urine Ketones Negative, Urine Blood Negative, Urine Nitrate Positive A , Urine Bilirubin Negative, Urine Urobilinogen 0.2, Ur Leukocyte Esterase 2+ A, Urine RBC None, Urine WBC 5-10, Ur Squamous Epith Cells Occasional, Urine Bacteria 1+, Urine Opiates Screen Negative, Urine Methadone Screen Negative, Ur Barbituates Screen Negative, Ur Phencyclidine Scrn Negative, Ur Amphetamines Screen Negative, U Benzodiazepines Scrn Negative, Urine Cocaine Screen Negative, U Marijuana (THC) Screen Negative 05/12/24 19:35 05/12/24 19:35 Orders (Tests/Meds): ED MEDICATIONS Generic Name Dose Route Start Last Admin Trade Name Freq PRN Reason Stop Dose Admin Ceftriaxone Sodium 2 gm/ 50 mls @ 100 mls/hr 05/12/24 20:39 Sodium Chloride IV 05/12/24 21:08 Q24H ONE Sodium Chloride 10 ml 05/12/24 19:46 Sodium Chloride 0.9% 10ml Flush Syringe IV 06/11/24 19:45 NEEDED PRN Maintain IV Site Sodium Chloride 10 ml 05/12/24 19:49 05/12/24 19:50 Sodium Chloride 0.9% 10ml Syr (Rad Only) IV 06/11/24 19:48 10 ml NEEDED PRN Administration Maintain IV Site Discontinued Medications Generic Name Dose Route Start Last Admin Trade Name Reggie PRN Reason Stop Dose Admin Iopamidol 80 ml 05/12/24 19:49 05/12/24 19:50 Iopamidol-370 (76%);100ml Bottle IV 05/12/24 19:50 80 ml ONCE ONE Administration Sodium Chloride 40 ml 05/12/24 19:49 05/12/24 19:50 0.9 % Sodium Chloride 50 Ml Vial IV 05/12/24 19:50 40 ml ONCE ONE Administration ORDERS Category Date Time Status CT angio head Stat Cat Scan 05/12/24 19:[address] angio neck Stat Cat Scan 05/12/24 19:[address] head/brain wo con Stat Cat Scan 05/12/24 19:46 Completed Activated Partial Thrombo Time Stat Lab 05/12/24 19:35 Completed Complete Blood Count Auto Diff Stat Lab 05/12/24 19:35 Completed Comprehensive Metabolic Panel Stat Lab 05/12/24 19:35 Completed Drug Screen,Urine Stat Lab 05/12/24 20:13 Completed Ethyl Alcohol Stat Lab 05/12/24 19:35 Completed Lipid Panel Stat Lab 05/12/24 19:35 Completed Prothrombin Time INR Stat Lab 05/12/24 19:35 Completed Troponin I Q3H Lab 05/12/24 23:00 Ordered Troponin I Q3H Lab 05/13/24 02:00 Ordered Troponin I Stat Lab 05/12/24 19:35 Completed Urinalysis and Microscopic Stat Lab 05/12/24 20:13 Completed Blood Culture Stat Micro 05/12/24 20:42 Ordered Urine Culture Stat Micro 05/12/24 20:13 Received ECG Request Stat Y 05/12/24 19:46 Ordered Medical Decision Narrative: In summary, this 73-year-old female with a history of stroke with chronic left- sided deficits, hypertension, hyperlipidemia, coronary artery disease, diabetes, presents to the emergency department today as a stroke alert with last known normal 7 PM. On initial evaluation patient is afebrile, he medically stable, chronically ill-appearing. NIH of 9 however patient has reported left-sided deficits. Not a candidate for thrombolytics due to anticoagulation on Xarelto.. Differential diagnosis includes but is not limited to stroke, hypoglycemia, UTI, pneumonia, recrudescence of prior stroke. Based on these concerns, I ordered CT head, CTAs of the head and neck, EKG, troponin, CBC, CMP, urinalysis. CT head independently interpreted by me on arrival revealing no acute intracranial hemorrhage or large territory infarction. No large vessel occlusion on CTAs. ECG personally interpreted as noted above. Labs personally reviewed demonstrate anemia with a hemoglobin of 10.3, possible UTI with positive nitrites and 5-10 white blood cells on urinalysis. Suspect encephalopathy in the setting of UTI, however stroke is possible. Consulted hospital medicine for admission in setting of UTI and possible stroke. Ultimately admitted to hospital medicine. Critical Care Critical Care Time Critical Care Time: Yes Attestation: On 05/12/24, the high probability of a clinically significant, sudden or life threatening deterioration of the following system(s) required my full and direct attention, intervention and personal management. The time I documented below is in addition to time spent performing reported procedures but includes the following listed in this critical care notation. Total Time Total Critical Care Time: 35
[2024-05-12 20:01] LABS: Basophils # 0.1 K/mm3 (0-0.2); Basophils % 1.4 % (0.1-2.0); Eosinophils # 0.1 K/mm3 (0.0-0.4); Eosinophils % 2.2 % (0.1-12.0); Hemoglobin 10.3 g/dL (12.2-16.2); Lymphocytes # 1.6 K/mm3 (0.7-4.5); Lymphocytes % 31.6 % (10-50); Mean Corpuscular HGB Conc 32.2 g/dL (31.8-35.4); Mean Corpuscular Hemoglobin 26.9 pg (27.0-31.2); Mean Corpuscular Volume 83.6 fl (81-99); Monocytes # 0.4 K/mm3 (0.1-1.0); Monocytes % 7.7 % (1.7-9.3); Neutrophils # 2.8 K/mm3 (1.8-7.8); Neutrophils % 56.7 % (37.0-80.0); Platelet Count 211 K/mm3 (142-424); Red Blood Count 3.83 M/mm3 (4.20-5.40); Red Cell Distribution Width 15.9 % (11.5-17.5); White Blood Count 4.9 K/mm3 (4.8-10.8)
[2024-05-12 20:03] LABS: Albumin Level 4.1 g/dl (3.5-5.0)
[2024-05-12 20:04] LABS: Chloride 104 mmol/L (98-107); Potassium 4.2 mmoL/L (3.5-5.1); Sodium 139 mmol/L (136-145)
[2024-05-12 20:06] LABS: Alanine Aminotransferase 16 U/L (12-78); Anion Gap 14.2 mEq/L (5-15); Aspartate Amino Transferase 25 U/L (14-36); Blood Urea Nitrogen 14 mg/dl (7-17); Carbon Dioxide 25 mmol/L (22.0-30.0); Creatinine Clearance Estimated 55 mL/min (50-200); Estimated Glomerular Filt Rate 54 ml/min (>60); GFR (African American) 66 ML/MIN (>60)
[2024-05-12 20:07] LABS: Albumin/Globulin Ratio 1.3 (1.1-1.8); Alkaline Phosphatase 83 U/L (38-126); Bilirubin,Total 0.4 mg/dl (0.2-1.3); Calcium 9.3 mg/dl (8.4-10.2); Chol/HDL Ratio 3.7 (1-3.5); Cholesterol 132 mg/dl (140-200); Globulin 3.2 g/dL (1.3-3.2); Glucose 149 mg/dl (74-100); HDL Cholesterol 36 mg/dl (40-60); Total Protein,Serum 7.3 g/dl (6.3-8.2); Triglycerides 140 mg/dl (30-150); VLDL Cholesterol 28 mg/dL (0-40)
[2024-05-12 20:09] LABS: Activated Partial Thrombo Time 29.5 seconds (22.8-30.6); Ethyl Alcohol < 10 mg/dl (0-10); INR 1.11 (0.9-1.1); Prothrombin Time 12.3 seconds (10.1-12.5)
[2024-05-12 20:17] LABS: Microscopic, Urine URINE MICROSCOPIC (MICROSCOPIC)
[2024-05-12 20:18] LABS: Direct LDL Cholesterol 69.55 mg/dL (100-129)
[2024-05-12 20:20] LABS: Bilirubin,Urine Negative (Negative); Blood, Urine Negative (Negative); Color,Urine YELLOW (Yellow); Glucose,Urine (UA) Negative (Negative); Ketones,Urine Negative (Negative); Leukocyte Esterase,Urine 2+ (Negative); Nitrate,Urine POSITIVE (Negative); Protein,Urine Negative (Negative); Urobilinogen,Urine 0.2 EU/dl (0.2)
[2024-05-12 20:21] LABS: Appearance,Urine Slightly Cloudy (Clear)
[2024-05-12 20:27] LABS: Troponin I < 0.01 ng/ml (0.00-0.034)
[2024-05-12 20:31] LABS: Barbiturates Screen,Urine Negative ng/ml (<200)
[2024-05-12 20:32] LABS: Benzodiazepines Screen,Urine Negative ng/ml (<200)
[2024-05-12 20:33] LABS: Amphetamine/Metha Screen,Urine Negative ng/ml (<1000); Cannabinoid Screen,Urine Negative ng/ml (<50)
[2024-05-12 20:34] LABS: Cocaine Screen,Urine Negative ng/ml (<300)
[2024-05-12 20:35] LABS: Methadone Screen,Urine Negative ng/ml (<300); Opiate Screen,Urine Negative ng/ml (<300)
[2024-05-12 20:36] LABS: Phencyclidine Screen,Urine Negative ng/ml (<25)
[2024-05-12 20:37] LABS: Bacteria,Urine 1+ /lpf; Squamous Epithelial Cell,Urine Occasional #/hpf (0-5)
--- NOTE | 2024-05-12 20:47 | PC.NURSE ---
bed request made for admission
[2024-05-12] MEDS: CEFTRIAXONE 1 GM 2 GM in 0.9 % SODIUM CHLORIDE 50 ML IV (20:51)
--- NOTE | 2024-05-12 20:59 | P.HP_ITS ---
<Statement entered by Wesley Briceno MD - 05/16/24 11:09> I personally examined patient and agree with the plan of care outlined by the [employer]. History of Present Illness *Admission Date: 05/12/24 *Reason for visit:: Altered mental status *History of present illness: This was a 73-year-old female with a past medical history of prior stroke with residual left-sided deficits, peripheral arterial disease, coronary artery disease, hypertension, hyperlipidemia, and diabetes mellitus who presented to the emergency department as a stroke alert. The history was provided by EMS and snf staff due to the patient?s impaired responsiveness. Earlier that evening, she had been alert, oriented, and ambulatory, with a Nicolette Coma Scale (GCS) of 15, which was her baseline. Shortly afterward, she became less responsive, and staff observed possible left facial droop and slurred speech, raising concern for an acute stroke. The patient, when able to communicate, confirmed she had a prior stroke with chronic left-sided deficits and reported taking clopidogrel (Plavix) daily. Recent records also indicated she was prescribed rivaroxaban (Xarelto) twice daily for anticoagulation. Upon arrival to the ED via EMS, she was afebrile, hemodynamically stable with el evated blood pressure, and appeared chronically ill and slightly somnolent, though arousable. Initial neurologic examination revealed slight flattening of the left nasolabial fold, drift of the left upper extremity, and weakness of the left lower extremity compared to the right, with an NIH Stroke Scale (NIHSS) score of 9; however, her baseline left-sided deficits complicated the assessment. She was disoriented to her age but knew the month and date. Laboratory results showed anemia with a hemoglobin of 10.3 g/dL, elevated glucose at 149 mg/dL, and a mildly reduced GFR of 54 mL/min/1.73m?, with a slightly elevated INR of 1.11 consistent with anticoagulation. Urinalysis revealed positive nitrates, leukocyte esterase, and 5-10 white blood cells, suggesting a urinary tract infection (UTI). A CT head without contrast and CT angiography of the head and neck were performed, with preliminary interpretation by the ED provider showing no acute intracranial hemorrhage, large territory infarction, or large vessel occlusion. The differential diagnosis included acute ischemic stroke (though thrombolytics were contraindicated due to Xarelto), recrudescence of prior stroke deficits, encephalopathy from UTI, hypoglycemia (ruled out by elevated glucose), or other systemic causes like pneumonia. She received IV ceftriaxone for suspected UTI and saline flushes for IV maintenance. Her presentation warranted urgent evaluation under the stroke protocol, and hospital medicine was consulted for admission. [facility] Disclaimer: The information contained in this section may have been updated after the patient was seen, as this information can be updated by other users. Medical History Excessive cerumen in both ear canals Depression with anxiety History of stent insertion of renal artery Diabetes mellitus Aortic stenosis Diabetic foot ulcer MRSA (methicillin resistant staph aureus) culture positive Postoperative wound dehiscence Gangrene of toe of left foot Cellulitis and abscess of foot Skin lesions Severe hearing loss Overweight with body mass index (BMI) 25.0-29.9 PAD (peripheral artery disease) Renal artery stenosis Hypertensive heart disease Coronary artery disease HTN (hypertension) Hyperlipidemia Surgical History H/O angiography History of left heart catheterization (LHC) History of intravascular stent placement Status post foot surgery Hx of amputation Family History Other Family history of cancer Family history of diabetes mellitus type II Family history of hyperlipidemia Family history of hypertension Social History Smoking Status: Never smoker alcohol intake: never substance use type: denies use current occupational status: disabled Travel in the last 8 weeks: None adopted: No caregiver/support person: No foster care: No household members: other housing: snf lives independently: No education level: high school service: No snf: No current occupational exposures/hazards: No caffeine: No special marguerite needs: No agree to transfusion: No do you feel safe at home: Yes victim of physical abuse: No victim of emotional abuse: No victim of sexual abuse: No would you like helpful sources: No Other Medical History Have you received the Flu Vaccine for this season: No Have you received the Pneumonia Vaccine: No (refused) Review of Systems Review of Systems Review of systems (narrative): 13 point review of systems negative except as listed in HPI Meds Home Medications and Allergies Home Medications ?Medication ?Instructions ?Recorded ?Confirmed ?Type nitroglycerin 0.4 mg sublingual 0.4 mg sublingual Q5MINP PRN Chest 11/09/20 05/12/24 History tablet Pain pantoprazole 40 mg tablet,delayed 40 mg PO DAILY GERD 11/09/20 05/12/24 History release acetaminophen 500 mg tablet 500 mg PO Q4H PRN Pain/fever 02/19/21 05/12/24 History loperamide 2 mg capsule 2 mg PO Q6H PRN diarrhea 08/20/21 05/12/24 History clopidogrel 75 mg tablet 75 mg PO DAILY thinner 01/21/22 05/12/24 History carvedilol 12.5 mg tablet 12.5 mg PO BID HR control 05/26/22 05/12/24 History rivaroxaban 2.5 mg tablet (Xarelto) 2.5 mg PO BID #60 tabs 11/25/22 05/12/24 Rx aluminum hydrox-magnesium carb 95 30 ml PO QID PRN upset stomach 02/09/23 05/12/24 History mg-358 mg/15 mL oral suspension (Gaviscon) ondansetron HCl 4 mg tablet 4 mg PO Q6H PRN Nausea & vomiting 02/09/23 05/12/24 History losartan 25 mg tablet (Cozaar) 25 mg PO DAILY 05/02/23 05/12/24 History atorvastatin 80 mg tablet 80 mg PO HS 06/16/23 05/12/24 History levocetirizine 5 mg tablet 5 mg PO HS PRN allergies 12/10/23 05/12/24 History insulin NPH-regular 70-30 U-100 8 unit SQ 1630 01/11/24 05/12/24 History insulin 100 unit/mL subcutaneous pen insulin NPH-regular 70-30 U-100 15 unit SQ .am Diabetes 01/11/24 05/12/24 History insulin 100 unit/mL subcutaneous pen (Humulin 70/30 U-100 Jeanna) mirtazapine 7.5 mg tablet 7.5 mg PO HS 01/11/24 05/12/24 History metformin 1,000 mg tablet 1,000 mg PO BID #180 tabs 02/16/24 05/12/24 Rx sertraline 25 mg tablet 25 mg PO DAILY 03/01/24 05/12/24 History gabapentin 100 mg capsule 100 mg PO QHS Pain #30 caps 03/19/24 05/12/24 Rx sitagliptin phosphate 50 mg tablet 50 mg PO DAILY 04/24/24 05/12/24 History (Febdemetrius) New Prescriptions to Start Prescriptions: Allergies Allergy/AdvReac Type Severity Reaction Status Date / Time No Known Allergies Allergy Verified 04/24/24 09:48 Exam Data for Last 24 hours Vital signs and Labs for Last 24 Hours: Temp Pulse Resp BP Pulse Ox O2 Del Method 97.5 F L 74 18 175/93 H 97 Room Air 05/12/24 19:55 05/12/24 20:00 05/12/24 20:00 05/12/24 20:00 05/12/24 20:00 05/12/24 20:00 Laboratory Results - last 24 hr 05/12/24 19:35: WBC 4.9, RBC 3.83 L, Hgb 10.3 L, Hct 32.0 L, MCV 83.6, MCH 26.9 L, MCHC 32.2, RDW 15.9, Plt Count 211, MPV 11.0 H, Neut % (Auto) 56.7, Lymph % (Auto) 31.6, Desha % (Auto) 7.7, Eos % (Auto) 2.2, Baso % (Auto) 1.4, Neut # (Auto) 2.8, Lymph # (Auto) 1.6, Desha # (Auto) 0.4, Eos # (Auto) 0.1, Baso # (Auto) 0.1, PT 12.3, INR 1.11 H, APTT 29.5, Sodium 139, Potassium 4.2, Chloride 104, Carbon Dioxide 25, Anion Gap 14.2, BUN 14, Creatinine 1.00, Estimated Creat Clear 55, Estimated GFR 54 L, Est GFR ( Amer) 66, Glucose 149 H, Calcium 9.3, Total Bilirubin 0.4, AST 25, ALT 16, Alkaline Phosphatase 83, Troponin I < 0.01, Total Protein 7.3, Albumin 4.1, Globulin 3.2, Albumin/Globulin Ratio 1.3, Triglycerides 140, Cholesterol 132 L, LDL Cholesterol Direct 69.55 L, VLDL Cholesterol 28, HDL Cholesterol 36 L, Cholesterol/HDL Ratio 3.7 H, Plasma/Serum Alcohol < 10 05/12/24 20:13: Urine Color Yellow, Urine Appearance Slightly cloudy, Urine pH 6.0, Ur Specific Gooding 1.010, Urine Protein Negative, Urine Glucose (UA) Negative, Urine Ketones Negative, Urine Blood Negative, Urine Nitrate Positive A , Urine Bilirubin Negative, Urine Urobilinogen 0.2, Ur Leukocyte Esterase 2+ A, Urine RBC None, Urine WBC 5-10, Ur Squamous Epith Cells Occasional, Urine Bacteria 1+, Urine Opiates Screen Negative, Urine Methadone Screen Negative, Ur Barbituates Screen Negative, Ur Phencyclidine Scrn Negative, Ur Amphetamines Screen Negative, U Benzodiazepines Scrn Negative, Urine Cocaine Screen Negative, U Marijuana (THC) Screen Negative I & O for Last 24 hours: Intake & Output 05/09/24 05/10/24 05/11/24 05/12/24 23:59 23:59 23:59 23:59 Weight 70.76 kg Constitutional Constitutional: no acute distress *Routine HEENT Exam Head: Present normocephalic Eye: Present EOMI and PERRL ENT: Present mucous membranes moist *Routine Neck Exam Neck: Present supple; Absent lymphadenopathy *Routine Respiratory Exam Respiratory: Present CTA bilaterally *Routine Cardiovascular Exam Cardiovascular: Present RRR *Routine Abdominal Exam Abdominal: Present soft and normoactive bowel sounds; Absent tenderness *Routine Rectal Exam Rectal:: deferred *Routine Genitalia Exam Genitalia:: deferred *Routine Extremities Exam Extremities: Absent cyanosis, clubbing or edema *Routine Skin Exam Skin: Present warm; Absent rash *Routine Neurological Exam Neurological: Present alert and oriented X3 Assessment and Plan *Assessment and plan (1) UTI (urinary tract infection): Status: Acute Category: Medical Code(s): N39.0 - Urinary tract infection, site not specified (2) Depression with anxiety: Problem Comment: Followed by Psychiatry Status: Acute Category: Medical Code(s): F41.8 - Other specified anxiety disorders (3) History of left heart catheterization (LHC): Problem Comment: Oct, non-flowing limiting disease Status: Acute Category: Surgical Code(s): Z98.890 - Other specified postprocedural states (4) History of intravascular stent placement: Problem Comment: right renal, left superficial femoral, popliteal Oct 2020 Status: Acute Category: Surgical Code(s): Z95.828 - Presence of other vascular implants and grafts (5) Diabetes mellitus: Status: Acute Qualifiers: Diabetes mellitus complication status: with other specified complication Diabetes mellitus adjunct faculty for medical terminology insulin use: unspecified retirement insulin use status Diabetes mellitus type: type 2 Qualified Code(s): E11.69 - Type 2 diabetes mellitus with other specified complication Category: Medical Code(s): E11.9 - Type 2 diabetes mellitus without complications (6) Aortic stenosis: Problem Comment: mild, ECHO 01/07 Status: Acute Category: Medical Code(s): I35.0 - Nonrheumatic aortic (valve) stenosis (7) Severe hearing loss: Status: Acute Qualifiers: Laterality: bilateral Qualified Code(s): H91.93 - Unspecified hearing loss, bilateral Category: Medical Code(s): H91.90 - Unspecified hearing loss, unspecified ear Plan * Acute Ischemic Stroke vs. Recrudescence: * This was a 73-year-old female with prior stroke (left-sided deficits), CAD, PAD, HTN, HLD, and DM who presented as a stroke alert with new reduced responsiveness, possible left facial droop, and slurred speech noted by snf staff after a normal baseline earlier that evening; NIHSS was 9, but chronic left-sided deficits complicated assessment (left nasolabial flattening, left arm drift, left leg weakness). * CT head and CTAs (head/neck) showed no hemorrhage, large infarction, or vessel occlusion; thrombolytics were contraindicated due to Xarelto (INR 1.11). * Differential included acute ischemic stroke vs. recrudescence of prior stroke; less likely TIA given persistent symptoms. * Plan: Continue stroke protocol; obtain MRI brain with diffusion-weighted imaging (DWI) to evaluate for acute infarct. Consult neurology for expert input on stroke vs. recrudescence and possible endovascular options (unlikely given no large vessel occlusion). Monitor neuro status q2h; manage BP (target <180/105 mmHg if ischemic stroke confirmed) with IV labetalol 10 mg PRN. * Possible UTI with Encephalopathy: * Urinalysis showed positive nitrates, leukocyte esterase 2+, and 5-10 WBCs, consistent with UTI; patient was somnolent but arousable, disoriented to age, suggesting encephalopathy as a contributor to altered mental status (AMS). * Labs otherwise showed WBC 4.9 (no leukocytosis), glucose 149 mg/dL (no hypoglycemia), and normal electrolytes; lactate not reported but sepsis unlikely without systemic signs. * Plan: Continue IV ceftriaxone 2 g q24h (started in ED) for UTI; obtain urine culture results (pending) to tailor antibiotics. Order blood cultures (stat) to rule out bacteremia. Reassess mental status q4h; if AMS persists despite UTI treatment, consider EEG for encephalopathy workup. * Anemia: * Hgb was 10.3 g/dL, Hct 32.0%, MCH 26.9 (mildly microcytic), possibly chronic from comorbidities (DM, renal disease) or acute from occult bleed; no overt bleeding noted. * Plan: No transfusion indicated (asymptomatic, Hgb >7); order iron studies, ferritin, and B12/folate to evaluate etiology. Trend Hgb with repeat CBC in 12-24 hours. * Uncontrolled Hypertension: * BP was elevated (175/93 mmHg) on arrival; history of HTN, on losartan 25 mg daily and carvedilol 12.5 mg BID. * Plan: Hold aggressive BP lowering unless stroke confirmed (ischemic stroke target <180/105 mmHg); if non-stroke etiology, resume home losartan and carvedilol. Administer IV labetalol 10 mg q1h PRN for SBP >180 mmHg. Monitor BP q4 * Diabetes Mellitus: * Glucose was 149 mg/dL (elevated); on metformin 1000 mg BID, Januvia 50 mg daily, and Humulin 70/30 (15 units AM, 8 units PM). * Plan: Hold oral hypoglycemics while NPO; start insulin sliding scale (e.g., regular insulin 4 units SC for glucose >150 mg/dL q6h). Check glucose q6h; adjust home insulin regimen post-admission if needed. * Coronary Artery Disease: * History of CAD with prior LHC ([id number]) and renal/superficial femoral stents; on clopidogrel and Xarelto; troponin was <0.01, ECG not detailed but no acute changes per ED note. * Plan: Continue clopidogrel 75 mg daily and Xarelto 2.5 mg BID (no bleed risk identified). Disposition * Admit to hospital medicine service rule out for suspected stroke vs. management of UTI with encephalopathy, and optimization of comorbidities (HTN, DM, CAD, anemia); inpatient monitoring required given AMS and stroke risk.
--- NOTE | 2024-05-12 21:01 | PC.NURSE ---
BP TRENDING UP, LAST BP 193/86, ED PROVIDER AWARE, NO NEW ORDERS RECIEVED. PT DENEIS PAIN OR ANY NEW SYMPTOMS.
--- NOTE | 2024-05-12 21:42 | PC.NURSE ---
Patient arrived to floor via stretcher from ED at 21:33.
[2024-05-12 22:10] LABS: POC Glucose,Bedside 117 (70-110)
--- NOTE | 2024-05-12 22:45 | PC.NURSE ---
per patient chart at long term, she is allowed to have a regular diet for some occasions, double protein diet with thin liquids for normal daily life. they do blood sugar checks at 730 am and 430 pm. she has no pressure ulcers on her sacrum present on admission.
[2024-05-12 23:24] LABS: Troponin I 0.01 ng/ml (0.00-0.034)
[2024-05-13] VITALS (12 sets, daily range): BP systolic 139–203; BP diastolic 63–92; PULSE 56–71; RESP 11–18; TEMP 35–36.8; O2SAT 93–98; BMI 24.2
[2024-05-13 02:16] LABS: Troponin I 0.01 ng/ml (0.00-0.034)
[2024-05-13 05:50] LABS: Basophils # 0.1 K/mm3 (0-0.2); Basophils % 0.9 % (0.1-2.0); Eosinophils # 0.1 K/mm3 (0.0-0.4); Eosinophils % 1.9 % (0.1-12.0); Hematocrit 28.7 % (37.0-47.0); Hemoglobin 9.5 g/dL (12.2-16.2); Lymphocytes # 1.7 K/mm3 (0.7-4.5); Lymphocytes % 31.2 % (10-50); Mean Corpuscular HGB Conc 33.1 g/dL (31.8-35.4); Mean Corpuscular Hemoglobin 27.4 pg (27.0-31.2); Mean Corpuscular Volume 82.7 fl (81-99); Monocytes # 0.4 K/mm3 (0.1-1.0); Monocytes % 7.6 % (1.7-9.3); Neutrophils # 3.1 K/mm3 (1.8-7.8); Platelet Count 203 K/mm3 (142-424); Red Blood Count 3.47 M/mm3 (4.20-5.40); Red Cell Distribution Width 15.7 % (11.5-17.5); White Blood Count 5.3 K/mm3 (4.8-10.8)
[2024-05-13 05:57] LABS: Chloride 108 mmol/L (98-107); Potassium 3.8 mmoL/L (3.5-5.1); Sodium 140 mmol/L (136-145)
[2024-05-13 06:00] LABS: Anion Gap 9.8 mEq/L (5-15); Blood Urea Nitrogen 13 mg/dl (7-17); Calcium 8.6 mg/dl (8.4-10.2); Carbon Dioxide 26 mmol/L (22.0-30.0); Creatinine Clearance Estimated 51 mL/min (50-200); Estimated Glomerular Filt Rate 61 ml/min (>60); GFR (African American) 74 ML/MIN (>60); Glucose 111 mg/dl (74-100)
--- NOTE | 2024-05-13 06:03 | PC.NURSE ---
called about critical lab. mag is 1.0. going to put in electrolyte protocol on pt.
[2024-05-13] MEDS: MAGNESIUM SULFATE IN WATER 2 GM/50 ML PIGGYBACK IV ×3 (06:24→08:22)
[2024-05-13 06:27] LABS: POC Glucose,Bedside 108 (70-110)
--- NOTE | 2024-05-13 06:40 | PC.NURSE ---
pt alert and oriented x3 unaware to situation. pt has rested all night. pt has a purewick on along with a brief. pt is on room air. pt is normal sinus with st depression with bbb on the monitor. pt is q6 fsbs. pt has scattered sores bilaterally on lower legs. skin tear on right fore arm. small sore just below umbilicus. left great toe is amputated. pt mag level was 1.0 pt started on electrolyte protocol replacement. 1st bag of mag started at 0630. pt has 2 more bags to be given this am. pt was hypothermic at midnight temp was 95.0F jose cruz hugger was placed on pt along with blankets and turning up the thermostat in the room. at 0500 pt temp was 98.7F. pt glucose is 107 at this time so no insulin was given.
[2024-05-13 08:12] LABS: POC Glucose,Bedside 120 (70-110)
[2024-05-13] MEDS: RIVAROXABAN 2.5MG TABLET 2.5 MG PO (09:41)
[2024-05-13] MEDS: SERTRALINE 50MG TABLET 25 MG PO (09:41)
[2024-05-13] MEDS: humaLOG MIX 75/25 3ML FLEXPEN 15 UNIT SUBCUT (09:42)
--- NOTE | 2024-05-13 10:24 | PC.NURSE ---
made aware of pt's blood pressure trending back up. No new orders.
[2024-05-13 11:23] LABS: POC Glucose,Bedside 111 (70-110)
[2024-05-13 15:04] LABS: Magnesium 2.6 mg/dl (1.6-2.3)
[2024-05-13 15:14] LABS: NT Pro Brain Natriuretic Pep. 1020 pg/mL (0-125)
[2024-05-13 15:50] LABS: Vitamin B12 249 pg/mL (239-931)
--- NOTE | 2024-05-13 15:52 | EXP.DC.SUM ---
General Admission date:: 05/12/24 HPI HPI HPI: This was a 73-year-old female with a past medical history of prior stroke with residual left-sided deficits, peripheral arterial disease, coronary artery disease, hypertension, hyperlipidemia, and diabetes mellitus who presented to the emergency department as a stroke alert. The history was provided by EMS and assisted staff due to the patient?s impaired responsiveness. Earlier that evening, she had been alert, oriented, and ambulatory, with a [place] Coma Scale (GCS) of 15, which was her baseline. Shortly afterward, she became less responsive, and staff observed possible left facial droop and slurred speech, raising concern for an acute stroke. The patient, when able to communicate, confirmed she had a prior stroke with chronic left-sided deficits and reported taking clopidogrel (Plavix) daily. Recent records also indicated she was prescribed rivaroxaban (Xarelto) twice daily for anticoagulation. Upon arrival to the ED via EMS, she was afebrile, hemodynamically stable with elevated blood pressure, and appeared chronically ill and slightly somnolent, though arousable. Initial neurologic examination revealed slight flattening of the left nasolabial fold, drift of the left upper extremity, and weakness of the left lower extremity compared to the right, with an NIH Stroke Scale (NIHSS) score of 9; however, her baseline left-sided deficits complicated the assessment. She was disoriented to her age but knew the month and date. Laboratory results showed anemia with a hemoglobin of 10.3 g/dL, elevated glucose at 149 mg/dL, and a mildly reduced GFR of 54 mL/min/1.73m?, with a slightly elevated INR of 1.11 consistent with anticoagulation. Urinalysis revealed positive nitrates, leukocyte esterase, and 5-10 white blood cells, suggesting a urinary tract infection (UTI). A CT head without contrast and CT angiography of the head and neck were performed, with preliminary interpretation by the ED provider showing no acute intracranial hemorrhage, large territory infarction, or large vessel occlusion. The differential diagnosis included acute ischemic stroke (though thrombolytics were contraindicated due to Xarelto), recrudescence of prior stroke deficits, encephalopathy from UTI, hypoglycemia (ruled out by elevated glucose), or other systemic causes like pneumonia. She received IV ceftriaxone for suspected UTI and saline flushes for IV maintenance. Her presentation warranted urgent evaluation under the stroke protocol, and hospital medicine was consulted for admission. Hospital Course Hospital Course Hospital Course: Sandrita hidalgo is a 73-year-old female with a medical history significant for CVA with residual left-sided deficits who presents for increased confusion and concern of worsening left-sided deficits was admitted for UTI. #Acute metabolic encephalopathy #UTI ? Presented with increased confusion, but also apparent worsening left-sided deficits. ? UA grossly abnormal, urine culture currently pending. ? Symptoms essentially resolved after ceftriaxone. Low suspicion for CVA given no significant worsening of residual left-sided deficits. ? Discharged with cefdinir for 3 more days. Will follow-up in urine culture. #History of CVA with left-sided residual deficits ? Continue home Plavix, Xarelto, statin. Low suspicion for new CVA. CT head, CTA head/neck did not show acute ischemic findings. ? To ensure no new CVA, patient will be scheduled for outpatient MRI. Case management will follow-up. ? Hemoglobin A1c, LDL at goal. #Suspected venous insufficiency ? Lower extremity pitting edema 2+. BNP 1020 but within expected range for age. Likely suspected venous insufficiency, but patient endorsing tightness. ? Started Lasix 40 mg daily as needed for edema. #Type 2 diabetes ? Continue home regimen. #Hypertension ? Continue home regimen. #GERD ? Continue home PPI #Anxiety/depression ? Continue home sertraline. Total time spent on discharge: 33 minutes on chart review, counseling, documentation, and direct care with patient. Exam Data for Last 24 hours Vital signs and Labs for Last 24 Hours: Temp Pulse Resp BP Pulse Ox O2 Del Method 97.8 F 61 14 173/76 H 97 Room Air 05/13/24 12:00 05/13/24 14:00 05/13/24 14:00 05/13/24 14:00 05/13/24 14:00 05/13/24 15:00 Laboratory Results - last 24 hr 05/12/24 19:35: WBC 4.9, RBC 3.83 L, Hgb 10.3 L, Hct 32.0 L, MCV 83.6, MCH 26.9 L, MCHC 32.2, RDW 15.9, Plt Count 211, MPV 11.0 H, Neut % (Auto) 56.7, Lymph % (Auto) 31.6, [place] % (Auto) 7.7, Eos % (Auto) 2.2, Baso % (Auto) 1.4, Neut # (Auto) 2.8, Lymph # (Auto) 1.6, [place] # (Auto) 0.4, Eos # (Auto) 0.1, Baso # (Auto) 0.1, PT 12.3, INR 1.11 H, APTT 29.5, Sodium 139, Potassium 4.2, Chloride 104, Carbon Dioxide 25, Anion Gap 14.2, BUN 14, Creatinine 1.00, Estimated Creat Clear 55, Estimated GFR 54 L, Est GFR ( Amer) 66, Glucose 149 H, Calcium 9.3, Total Bilirubin 0.4, AST 25, ALT 16, Alkaline Phosphatase 83, Troponin I < 0.01, Total Protein 7.3, Albumin 4.1, Globulin 3.2, Albumin/Globulin Ratio 1.3, Triglycerides 140, Cholesterol 132 L, LDL Cholesterol Direct 69.55 L, VLDL Cholesterol 28, HDL Cholesterol 36 L, Cholesterol/HDL Ratio 3.7 H, Plasma/Serum Alcohol < 10 05/12/24 20:13: Urine Color Yellow, Urine Appearance Slightly cloudy, Urine pH 6.0, Ur Specific [place] 1.010, Urine Protein Negative, Urine Glucose (UA) Negative, Urine Ketones Negative, Urine Blood Negative, Urine Nitrate Positive A, Urine Bilirubin Negative, Urine Urobilinogen 0.2, Ur Leukocyte Esterase 2+ A, Urine RBC None, Urine WBC 5-10, Ur Squamous Epith Cells Occasional, Urine Bacteria 1+, Urine Opiates Screen Negative, Urine Methadone Screen Negative, Ur Barbituates Screen Negative, Ur Phencyclidine Scrn Negative, Ur Amphetamines Screen Negative, U Benzodiazepines Scrn Negative, Urine Cocaine Screen Negative, U Marijuana (THC) Screen Negative 05/12/24 22:02: POC Glucose 117 H 05/12/24 22:50: Troponin I 0.01 05/13/24 01:45: Troponin I 0.01 05/13/24 05:24: WBC 5.3, RBC 3.47 L, Hgb 9.5 L, Hct 28.7 L, MCV 82.7, MCH 27.4, MCHC 33.1, RDW 15.7, Plt Count 203, MPV 11.0 H, Neut % (Auto) 58.0, Lymph % (Auto) 31.2, [place] % (Auto) 7.6, Eos % (Auto) 1.9, Baso % (Auto) 0.9, Neut # (Auto) 3.1, Lymph # (Auto) 1.7, [place] # (Auto) 0.4, Eos # (Auto) 0.1, Baso # (Auto) 0.1, Sodium 140, Potassium 3.8, Chloride 108 H, Carbon Dioxide 26, Anion Gap 9.8, BUN 13, Creatinine 0.90, Estimated Creat Clear 51, Estimated GFR 61, Est GFR ( Amer) 74, Glucose 111 H D, Calcium 8.6, Magnesium 1.0 L, TSH 2.00 05/13/24 06:20: POC Glucose 108 05/13/24 08:04: POC Glucose 120 H 05/13/24 11:15: POC Glucose 111 H 05/13/24 14:35: Magnesium 2.6 H D, NT-Pro-B Natriuret Pep 1020 H I & O for Last 24 hours: Intake & Output 05/10/24 05/11/24 05/12/24 05/13/24 23:59 23:59 23:59 23:59 Intake Total 457 / 457 Output Total 1100 / 1100 Balance -643 / -643 Weight 65.227 kg 66 kg Microbiology Reports for the Last 24 Hours: Microbiology 05/12/24 20:13 Urine,Clean Catch Urine Culture - Preliminary Constitutional Constitutional: no acute distress *Routine HEENT Exam Head: Present normocephalic Eye: Present EOMI and PERRL ENT: Present mucous membranes moist *Routine Neck Exam Neck: Present supple; Absent lymphadenopathy *Routine Respiratory Exam Respiratory: Present CTA bilaterally *Routine Cardiovascular Exam Cardiovascular: Present RRR *Routine Abdominal Exam Abdominal: Present soft and normoactive bowel sounds; Absent tenderness *Routine Extremities Exam Extremities: Present edema; Absent cyanosis or clubbing *Routine Skin Exam Skin: Present warm; Absent rash *Routine Neurological Exam Neurological: Present alert and oriented X3 Results Data Completed and Pending Labs on day of discharge: Labs from last 24 hours 05/13/24 05/13/24 05/13/24 14:35 11:15 08:04 WBC RBC Hgb Hct MCV MCH MCHC RDW Plt Count MPV Neut % (Auto) Lymph % (Auto) [place] % (Auto) Eos % (Auto) Baso % (Auto) Neut # (Auto) Lymph # (Auto) [place] # (Auto) Eos # (Auto) Baso # (Auto) PT INR APTT Sodium Potassium Chloride Carbon Dioxide Anion Gap BUN Creatinine Estimated Creat Clear Estimated GFR Est GFR ( Amer) Glucose POC Glucose 111 H 120 H Calcium Magnesium 2.6 H D Total Bilirubin AST ALT Alkaline Phosphatase Troponin I NT-Pro-B Natriuret Pep 1020 H Total Protein Albumin Globulin Albumin/Globulin Ratio Triglycerides Cholesterol LDL Cholesterol Direct VLDL Cholesterol HDL Cholesterol Cholesterol/HDL Ratio TSH Urine Color Urine Appearance Urine pH Ur Specific [place] Urine Protein Urine Glucose (UA) Urine Ketones Urine Blood Urine Nitrate Urine Bilirubin Urine Urobilinogen Ur Leukocyte Esterase Urine RBC Urine WBC Ur Squamous Epith Cells Urine Bacteria Urine Opiates Screen Urine Methadone Screen Ur Barbituates Screen Ur Phencyclidine Scrn Ur Amphetamines Screen U Benzodiazepines Scrn Urine Cocaine Screen U Marijuana (THC) Screen Plasma/Serum Alcohol 05/13/24 05/13/24 05/13/24 06:20 05:24 01:45 WBC 5.3 RBC 3.47 L Hgb 9.5 L Hct 28.7 L MCV 82.7 MCH 27.4 MCHC 33.1 RDW 15.7 Plt Count 203 MPV 11.0 H Neut % (Auto) 58.0 Lymph % (Auto) 31.2 [place] % (Auto) 7.6 Eos % (Auto) 1.9 Baso % (Auto) 0.9 Neut # (Auto) 3.1 Lymph # (Auto) 1.7 [place] # (Auto) 0.4 Eos # (Auto) 0.1 Baso # (Auto) 0.1 PT INR APTT Sodium 140 Potassium 3.8 Chloride 108 H Carbon Dioxide 26 Anion Gap 9.8 BUN 13 Creatinine 0.90 Estimated Creat Clear 51 Estimated GFR 61 Est GFR ( Amer) 74 Glucose 111 H D POC Glucose 108 Calcium 8.6 Magnesium 1.0 L Total Bilirubin AST ALT Alkaline Phosphatase Troponin I 0.01 NT-Pro-B Natriuret Pep Total Protein Albumin Globulin Albumin/Globulin Ratio Triglycerides Cholesterol LDL Cholesterol Direct VLDL Cholesterol HDL Cholesterol Cholesterol/HDL Ratio TSH 2.00 Urine Color Urine Appearance Urine pH Ur Specific [place] Urine Protein Urine Glucose (UA) Urine Ketones Urine Blood Urine Nitrate Urine Bilirubin Urine Urobilinogen Ur Leukocyte Esterase Urine RBC Urine WBC Ur Squamous Epith Cells Urine Bacteria Urine Opiates Screen Urine Methadone Screen Ur Barbituates Screen Ur Phencyclidine Scrn Ur Amphetamines Screen U Benzodiazepines Scrn Urine Cocaine Screen U Marijuana (THC) Screen Plasma/Serum Alcohol 05/12/24 05/12/24 05/12/24 22:50 22:02 20:13 WBC RBC Hgb Hct MCV MCH MCHC RDW Plt Count MPV Neut % (Auto) Lymph % (Auto) [place] % (Auto) Eos % (Auto) Baso % (Auto) Neut # (Auto) Lymph # (Auto) [place] # (Auto) Eos # (Auto) Baso # (Auto) PT INR APTT Sodium Potassium Chloride Carbon Dioxide Anion Gap BUN Creatinine Estimated Creat Clear Estimated GFR Est GFR ( Amer) Glucose POC Glucose 117 H Calcium Magnesium Total Bilirubin AST ALT Alkaline Phosphatase Troponin I 0.01 NT-Pro-B Natriuret Pep Total Protein Albumin Globulin Albumin/Globulin Ratio Triglycerides Cholesterol LDL Cholesterol Direct VLDL Cholesterol HDL Cholesterol Cholesterol/HDL Ratio TSH Urine Color Yellow Urine Appearance Slightly cloudy Urine pH 6.0 Ur Specific [place] 1.010 Urine Protein Negative Urine Glucose (UA) Negative Urine Ketones Negative Urine Blood Negative Urine Nitrate Positive A Urine Bilirubin Negative Urine Urobilinogen 0.2 Ur Leukocyte Esterase 2+ A Urine RBC None Urine WBC 5-10 Ur Squamous Epith Cells Occasional Urine Bacteria 1+ Urine Opiates Screen Negative Urine Methadone Screen Negative Ur Barbituates Screen Negative Ur Phencyclidine Scrn Negative Ur Amphetamines Screen Negative U Benzodiazepines Scrn Negative Urine Cocaine Screen Negative U Marijuana (THC) Screen Negative Plasma/Serum Alcohol 05/12/24 19:35 WBC 4.9 RBC 3.83 L Hgb 10.3 L Hct 32.0 L MCV 83.6 MCH 26.9 L MCHC 32.2 RDW 15.9 Plt Count 211 MPV 11.0 H Neut % (Auto) 56.7 Lymph % (Auto) 31.6 [place] % (Auto) 7.7 Eos % (Auto) 2.2 Baso % (Auto) 1.4 Neut # (Auto) 2.8 Lymph # (Auto) 1.6 [place] # (Auto) 0.4 Eos # (Auto) 0.1 Baso # (Auto) 0.1 PT 12.3 INR 1.11 H APTT 29.5 Sodium 139 Potassium 4.2 Chloride 104 Carbon Dioxide 25 Anion Gap 14.2 BUN 14 Creatinine 1.00 Estimated Creat Clear 55 Estimated GFR 54 L Est GFR ( Amer) 66 Glucose 149 H POC Glucose Calcium 9.3 Magnesium Total Bilirubin 0.4 AST 25 ALT 16 Alkaline Phosphatase 83 Troponin I < 0.01 NT-Pro-B Natriuret Pep Total Protein 7.3 Albumin 4.1 Globulin 3.2 Albumin/Globulin Ratio 1.3 Triglycerides 140 Cholesterol 132 L LDL Cholesterol Direct 69.55 L VLDL Cholesterol 28 HDL Cholesterol 36 L Cholesterol/HDL Ratio 3.7 H TSH Urine Color Urine Appearance Urine pH Ur Specific [place] Urine Protein Urine Glucose (UA) Urine Ketones Urine Blood Urine Nitrate Urine Bilirubin Urine Urobilinogen Ur Leukocyte Esterase Urine RBC Urine WBC Ur Squamous Epith Cells Urine Bacteria Urine Opiates Screen Urine Methadone Screen Ur Barbituates Screen Ur Phencyclidine Scrn Ur Amphetamines Screen U Benzodiazepines Scrn Urine Cocaine Screen U Marijuana (THC) Screen Plasma/Serum Alcohol < 10 Preliminary micro results at discharge 05/12/24 20:13 Urine Culture - Preliminary Urine,Clean Catch DS: Diagnosis Discharge Diagnosis (1) UTI (urinary tract infection): Status: Acute Code(s): N39.0 - Urinary tract infection, site not specified (2) Depression with anxiety: Status: Acute Code(s): F41.8 - Other specified anxiety disorders Problem details: Followed by Psychiatry (3) History of left heart catheterization (LHC): Status: Acute Code(s): Z98.890 - Other specified postprocedural states Problem details: Oct, non-flowing limiting disease (4) History of intravascular stent placement: Status: Acute Code(s): Z95.828 - Presence of other vascular implants and grafts Problem details: right renal, left superficial femoral, popliteal Oct 2020 (5) Diabetes mellitus: Status: Acute Code(s): E11.9 - Type 2 diabetes mellitus without complications Qualifiers: Diabetes mellitus complication status: with other specified complication Diabetes mellitus penitentiary insulin use: unspecified terminal computer operator insulin use status Diabetes mellitus type: type 2 Qualified Code(s): E11.69 - Type 2 diabetes mellitus with other specified complication (6) Aortic stenosis: Status: Acute Code(s): I35.0 - Nonrheumatic aortic (valve) stenosis Problem details: mild, ECHO 01/07 (7) Severe hearing loss: Status: Acute Code(s): H91.90 - Unspecified hearing loss, unspecified ear Qualifiers: Laterality: bilateral Qualified Code(s): H91.93 - Unspecified hearing loss, bilateral Meds Home Medications and Allergies Home Medications ?Medication ?Instructions ?Recorded ?Confirmed ?Type nitroglycerin 0.4 mg sublingual 0.4 mg sublingual Q5MINP PRN Chest 11/09/20 05/12/24 History tablet Pain pantoprazole 40 mg tablet,delayed 40 mg PO DAILY GERD 11/09/20 05/12/24 History release acetaminophen 500 mg tablet 500 mg PO Q4HP PRN Pain/fever 02/19/21 05/13/24 History loperamide 2 mg capsule 2 mg PO Q6HP PRN diarrhea 08/20/21 05/13/24 History clopidogrel 75 mg tablet 75 mg PO DAILY thinner 01/21/22 05/12/24 History carvedilol 12.5 mg tablet 12.5 mg PO BID HR control 05/26/22 05/12/24 History rivaroxaban 2.5 mg tablet (Xarelto) 2.5 mg PO BID #60 tabs 11/25/22 05/12/24 Rx ondansetron HCl 4 mg tablet 4 mg PO Q6HP PRN Nausea & vomiting 02/09/23 05/13/24 History losartan 25 mg tablet (Cozaar) 25 mg PO DAILY 05/02/23 05/12/24 History atorvastatin 80 mg tablet 80 mg PO HS 06/16/23 05/12/24 History levocetirizine 5 mg tablet 5 mg PO HS PRN allergies 12/10/23 05/12/24 History insulin NPH-regular 70-30 U-100 8 unit SQ 1630 01/11/24 05/12/24 History insulin 100 unit/mL subcutaneous pen insulin NPH-regular 70-30 U-100 15 unit SQ DAILY Diabetes 01/11/24 05/13/24 History insulin 100 unit/mL subcutaneous pen (Humulin 70/30 U-100 KwikPen) mirtazapine 7.5 mg tablet 7.5 mg PO HS 01/11/24 05/12/24 History sertraline 25 mg tablet 25 mg PO DAILY 03/01/24 05/12/24 History sitagliptin phosphate 50 mg tablet 50 mg PO DAILY 04/24/24 05/12/24 History (Januvia) aluminum hydrox-magnesium carb 95 30 ml PO QIDP PRN Heartburn 05/13/24 05/13/24 History mg-358 mg/15 mL oral suspension cefdinir 300 mg capsule 300 mg PO BID 3 days #6 caps 05/13/24 Rx furosemide 40 mg tablet (Lasix) 40 mg PO DAILY PRN Lower extremity 05/13/24 Rx edema #30 tabs gabapentin 100 mg capsule 100 mg PO HS Pain 05/13/24 05/13/24 History metformin 1,000 mg tablet 1,000 mg PO BIDWMEAL 05/13/24 05/13/24 History New Prescriptions to Start Prescriptions: Wesley Alexander furosemide [Lasix] Wesley Briceno Allergies Allergy/AdvReac Type Severity Reaction Status Date / Time No Known Allergies Allergy Verified 04/24/24 09:48 Discharge Plan Disposition Patient Disposition: [facility] Condition: Fair Discharge Order Discharge Orders: Discharge Order (Routine); Ordered 05/13/24 Ordered By: Wesley Briceno Follow up Plan Prescriptions/Medication Reconciliation: New cefdinir 300 mg capsule 300 mg PO BID 3 Days Qty: 6 0RF furosemide [Lasix] 40 mg tablet 40 mg PO DAILY PRN (Reason: Lower extremity edema) Qty: 30 0RF Continued acetaminophen 500 mg tablet 500 mg PO Q4HP PRN (Reason: Pain/fever) loperamide 2 mg capsule 2 mg PO Q6HP PRN (Reason: diarrhea) carvedilol 12.5 mg tablet 12.5 mg PO BID Xarelto 2.5 mg tablet 2.5 mg PO BID Qty: 60 2RF atorvastatin 80 mg tablet 80 mg PO HS sertraline 25 mg tablet 25 mg PO DAILY levocetirizine 5 mg tablet 5 mg PO HS PRN (Reason: allergies) mirtazapine 7.5 mg tablet 7.5 mg PO HS losartan [Cozaar] 25 mg tablet 25 mg PO DAILY Januvia 50 mg tablet 50 mg PO DAILY ondansetron HCl 4 mg tablet 4 mg PO Q6HP PRN (Reason: Nausea & vomiting) Humulin 70/30 U-100 KwikPen 100 unit/mL (70-30) insulin pen 15 unit SQ DAILY insulin NPH and regular human 100 unit/mL (70-30) insulin pen 8 unit SQ 1630 aluminum hydrox-magnesium carb 95-358 mg/15 mL Suspension 30 ml PO QIDP PRN (Reason: Heartburn) metformin 1,000 mg tablet 1,000 mg PO BIDWMEAL gabapentin 100 mg capsule 100 mg PO HS pantoprazole 40 MG tablet,delayed release (DR/EC) 40 mg PO DAILY nitroglycerin 0.4 MG tablet, sublingual 0.4 mg SL Q5MINP PRN (Reason: Chest Pain) clopidogrel 75 MG tablet 75 mg PO DAILY Other Ambulatory Orders: MR head/brain wo con (Routine) Timeframe: 1 Month Facility: [facility] - Location: Radiology Ordered By: Wesley Briceno Problem Reconciliation Problems Reviewed?: Yes Patient Discharge Instructions Patient Instructions: DI for Altered Mental Status Print Language: Danish Providers Primary Care Provider: Provider,Referral Admit Provider: Wesley Briceno Attending Provider: Wesley Briceno
[2024-05-13] MEDS: CEFTRIAXONE 1 GM 1 GM in 0.9 % SODIUM CHLORIDE 50 ML IV (15:54)
[2024-05-13 16:07] LABS: Folate 3.91 ng/mL
--- NOTE | 2024-05-13 16:07 | PC.NURSE ---
Attempted to notify family that patient is being transferred back to the detention today. No answer, message left.
[2024-05-13 16:39] LABS: POC Glucose,Bedside 125 (70-110)
== END 2024-05-13 17:01 ==
LOC: ER 20:36 → 2ND 21:01
PROVIDERS: Nurse Practitioner; Nurse Practitioner Family; Admitting Provider Student in an Organized Health Care Education/Training Program; Emergency Provider Student in an Organized Health Care Education/Training Program; Visit Provider Student in an Organized Health Care Education/Training Program
DX: G93.41 Metabolic encephalopathy (principal); N39.0 Urinary tract infection, site not specified; E11.69 Type 2 diabetes mellitus with other specified complication; I35.0 Nonrheumatic aortic (valve) stenosis; F41.9 Anxiety disorder, unspecified; I69.354 Hemiplegia and hemiparesis following cerebral infarction affecting left non-dominant side; F32.A Depression, unspecified; H91.93 Unspecified hearing loss, bilateral; E11.51 Type 2 diabetes mellitus with diabetic peripheral angiopathy without gangrene; E11.65 Type 2 diabetes mellitus with hyperglycemia; K21.9 Gastro-esophageal reflux disease without esophagitis; I25.10 Atherosclerotic heart disease of native coronary artery without angina pectoris; E78.5 Hyperlipidemia, unspecified; I11.9 Hypertensive heart disease without heart failure; R60.0 Localized edema; D64.9 Anemia, unspecified; Z79.02 Long term (current) use of antithrombotics/antiplatelets; Z95.828 Presence of other vascular implants and grafts; Z79.4 Long term (current) use of insulin; Z79.84 Long term (current) use of oral hypoglycemic drugs; Z79.899 Other long term (current) drug therapy; Z79.01 Long term (current) use of anticoagulants; Z86.31 Personal history of diabetic foot ulcer; Z83.3 Family history of diabetes mellitus; Z80.9 Family history of malignant neoplasm, unspecified; Z82.49 Family history of ischemic heart disease and other diseases of the circulatory system; Z83.438 Family history of other disorder of lipoprotein metabolism and other lipidemia; Z28.21 Immunization not carried out because of patient refusal; Z89.412 Acquired absence of left great toe
CPT/HCPCS: 36415; 70450; 70496; 70498; 80048; 80053; 80061; 80307; 80320; 81001; 82607; 82746; 82962; 83735; 83880; 84443; 84484; 85025; 85610; 85730; 87040; 87086; 87088; 87186; 93005; 99291; G0378; J0696; J3475; Q9967

== ENCOUNTER 2024-05-14 07:31 | Outpatient (CLI) | payer MEDICARE, MEDICAID, SELFPAY ==
[2024-05-14 07:43] LABS: Basophils # 0.1 K/mm3 (0-0.2); Basophils % 1.4 % (0.1-2.0); Eosinophils # 0.1 K/mm3 (0.0-0.4); Eosinophils % 2.3 % (0.1-12.0); Hematocrit 30.4 % (37.0-47.0); Hemoglobin 9.8 g/dL (12.2-16.2); Lymphocytes # 1.4 K/mm3 (0.7-4.5); Mean Corpuscular HGB Conc 32.2 g/dL (31.8-35.4); Mean Corpuscular Hemoglobin 26.6 pg (27.0-31.2); Mean Corpuscular Volume 82.6 fl (81-99); Mean Platelet Volume 10.9 fl (7.4-10.4); Monocytes # 0.4 K/mm3 (0.1-1.0); Monocytes % 8.6 % (1.7-9.3); Neutrophils # 2.5 K/mm3 (1.8-7.8); Neutrophils % 55.5 % (37.0-80.0); Platelet Count 218 K/mm3 (142-424); Red Blood Count 3.68 M/mm3 (4.20-5.40); Red Cell Distribution Width 15.8 % (11.5-17.5); White Blood Count 4.4 K/mm3 (4.8-10.8)
[2024-05-14 07:50] LABS: Albumin Level 3.7 g/dl (3.5-5.0); Chloride 106 mmol/L (98-107)
[2024-05-14 07:51] LABS: Potassium 3.8 mmoL/L (3.5-5.1); Sodium 139 mmol/L (136-145)
[2024-05-14 07:53] LABS: Alanine Aminotransferase 13 U/L (12-78); Anion Gap 11.8 mEq/L (5-15); Aspartate Amino Transferase 23 U/L (14-36); Blood Urea Nitrogen 11 mg/dl (7-17); Carbon Dioxide 25 mmol/L (22.0-30.0); Estimated Glomerular Filt Rate 70 ml/min (>60); GFR (African American) 85 ML/MIN (>60)
[2024-05-14 07:54] LABS: Albumin/Globulin Ratio 1.3 (1.1-1.8); Alkaline Phosphatase 88 U/L (38-126); Bilirubin,Total 0.3 mg/dl (0.2-1.3); Calcium 8.4 mg/dl (8.4-10.2); Chol/HDL Ratio 4.1 (1-3.5); Cholesterol 127 mg/dl (140-200); Globulin 2.9 g/dL (1.3-3.2); Glucose 132 mg/dl (74-100); HDL Cholesterol 31 mg/dl (40-60); Total Protein,Serum 6.6 g/dl (6.3-8.2); Triglycerides 131 mg/dl (30-150); VLDL Cholesterol 26 mg/dL (0-40)
== END 2024-05-14 23:59 | disposition home or self-care (01) ==
PROVIDERS: PCP Family Medicine; Visit Provider Family Medicine
DX: E11.9 Type 2 diabetes mellitus without complications (principal); Z13.228 Encounter for screening for other metabolic disorders
CPT/HCPCS: 36415; 80053; 80061; 83036; 85025

== ENCOUNTER 2024-05-22 13:49 | Outpatient (CLI) | payer MEDICARE, MEDICAID, SELFPAY ==
--- NOTE | 2024-05-22 13:45 | MR_ITS ---
FINAL REPORT TECHNIQUE: Multiplanar MR without contrast CLINICAL HISTORY: Reported worsening left-sided weakness hx of stroke COMPARISON: None FINDINGS: Diffusion sequences show no signal abnormality to indicate acute infarct. Scattered periventricular white matter signal changes are seen compatible with advanced chronic ischemic gliotic disease. Severe generalized atrophy is present. No mass, hemorrhage or edema is seen. Ventricles are normal given the degree of atrophy. Major vascular flow voids are intact. IMPRESSION: 1. No mass, acute infarct or hydrocephalus 2. Advanced atrophy and chronic ischemic white matter changes Reviewed, Interpreted and Dictated by Fany Hunt MD Transcribed by Sherin Cortez Authenticated and [facility]
== END 2024-05-22 23:59 | disposition home or self-care (01) ==
LOC: RAD 13:50
PROVIDERS: PCP Family Medicine; Visit Provider Student in an Organized Health Care Education/Training Program
DX: R53.1 Weakness (principal); I63.9 Cerebral infarction, unspecified
CPT/HCPCS: 70551

== ENCOUNTER 2024-08-20 07:20 | Outpatient (CLI) | payer MEDICARE, MEDICAID, SELFPAY ==
[2024-08-20 07:48] LABS: Alanine Aminotransferase 13 U/L (12-78); Albumin Level 3.5 g/dl (3.5-5.0); Albumin/Globulin Ratio 1.3 (1.1-1.8); Alkaline Phosphatase 74 U/L (38-126); Anion Gap 12.7 mEq/L (5-15); Aspartate Amino Transferase 20 U/L (14-36); Bilirubin,Total 0.3 mg/dl (0.2-1.3); Blood Urea Nitrogen 14 mg/dl (7-17); Calcium 9.0 mg/dl (8.4-10.2); Carbon Dioxide 23 mmol/L (22.0-30.0); Chloride 107 mmol/L (98-107); Cholesterol 119 mg/dl (140-200); Creatinine,Serum 1.10 mg/dl (0.52-1.04); Estimated Glomerular Filt Rate 49 ml/min (>60); GFR (African American) 59 ML/MIN (>60); Globulin 2.8 g/dL (1.3-3.2); Glucose 108 mg/dl (74-100); HDL Cholesterol 25 mg/dl (40-60); Potassium 4.7 mmoL/L (3.5-5.1); Sodium 138 mmol/L (136-145); Total Protein,Serum 6.3 g/dl (6.3-8.2); Triglycerides 164 mg/dl (30-150)
[2024-08-20 10:51] LABS: Hemoglobin A1C 8.2 % (4.0-6.0)
== END 2024-08-20 23:59 | disposition home or self-care (01) ==
PROVIDERS: PCP Family Medicine; Visit Provider Family Medicine
DX: E11.9 Type 2 diabetes mellitus without complications (principal)
CPT/HCPCS: 36415; 80053; 80061; 83036

== ENCOUNTER 2024-11-28 07:07 | Outpatient (CLI) | payer MEDICARE, MEDICAID, SELFPAY ==
[2024-11-28 07:32] LABS: Chloride 109 mmol/L (98-107); Sodium 139 mmol/L (136-145)
[2024-11-28 07:33] LABS: Potassium 4.2 mmoL/L (3.5-5.1)
[2024-11-28 07:35] LABS: Blood Urea Nitrogen 16 mg/dl (7-17); Creatinine,Serum 1.00 mg/dl (0.52-1.04); Estimated Glomerular Filt Rate 54 ml/min (>60); GFR (African American) 66 ML/MIN (>60)
[2024-11-28 07:36] LABS: Anion Gap 11.2 mEq/L (5-15); Calcium 7.9 mg/dl (8.4-10.2); Carbon Dioxide 23 mmol/L (22.0-30.0); Glucose 83 mg/dl (74-100)
[2024-11-28 09:05] LABS: Hemoglobin A1C 6.4 % (4.0-6.0)
== END 2024-11-28 23:59 | disposition home or self-care (01) ==
PROVIDERS: PCP Nurse Practitioner Family; Visit Provider Nurse Practitioner Family
DX: E11.9 Type 2 diabetes mellitus without complications (principal)
CPT/HCPCS: 36415; 80048; 83036

== ENCOUNTER 2024-12-17 13:52 | Outpatient (CLI) | payer MEDICARE, MEDICAID, SELFPAY ==
[2024-12-17 14:47] LABS: Hematocrit 30.7 % (37.0-47.0); Hemoglobin 9.3 g/dL (12.2-16.2); Immature Granulocytes % 0.4 %; Mean Corpuscular HGB Conc 30.3 g/dL (31.8-35.4); Mean Corpuscular Hemoglobin 27.8 pg (27.0-31.2); Mean Corpuscular Volume 91.6 fl (81-99); Nucleated Red Blood Cells % 0 %; Platelet Count 214 K/mm3 (142-424); Red Blood Count 3.35 M/mm3 (4.20-5.40); Red Cell Distribution Width-SD 44.9 fL; White Blood Count 4.7 K/mm3 (4.8-10.8)
[2024-12-17 15:18] LABS: Alanine Aminotransferase 13 U/L (12-78); Albumin Level 3.9 g/dl (3.5-5.0); Alkaline Phosphatase 101 U/L (38-126); Anion Gap 13.7 mEq/L (5-15); Aspartate Amino Transferase 18 U/L (14-36); Bilirubin,Direct 0.2 mg/dl (0.0-0.4); Bilirubin,Indirect 0.1 mg/dL (0.0-0.9); Bilirubin,Total 0.3 mg/dl (0.2-1.3); Bilirubin,Unconjugated 0.2 mg/dL (0.0-1.1); Blood Urea Nitrogen 17 mg/dl (7-17); Calcium 9.0 mg/dl (8.4-10.2); Carbon Dioxide 20 mmol/L (22.0-30.0); Chloride 108 mmol/L (98-107); Cholesterol 142 mg/dl (140-200); Creatinine,Serum 1.10 mg/dl (0.52-1.04); Estimated Glomerular Filt Rate 49 ml/min (>60); GFR (African American) 59 ML/MIN (>60); Glucose 148 mg/dl (74-100); HDL Cholesterol 32 mg/dl (40-60); Magnesium 1.1 mg/dl (1.6-2.3); Potassium 4.7 mmoL/L (3.5-5.1); Sodium 137 mmol/L (136-145); Total Protein,Serum 7.3 g/dl (6.3-8.2); Triglycerides 227 mg/dl (30-150)
[2024-12-17 15:30] LABS: Free T4 (Free Thyroxine) 0.88 ng/dl (0.78-2.19)
[2024-12-17 15:46] LABS: Thyroid Stimulating Hormone 1.85 uIU/mL (0.465-4.68)
== END 2024-12-17 23:59 | disposition home or self-care (01) ==
LOC: LAB 13:53
PROVIDERS: PCP Family Medicine; Visit Provider Physician Assistant
DX: I11.9 Hypertensive heart disease without heart failure; I25.10 Atherosclerotic heart disease of native coronary artery without angina pectoris
CPT/HCPCS: 36415; 80048; 80061; 80076; 83735; 84439; 84443; 85025

== ENCOUNTER 2025-01-07 08:35 | Outpatient (CLI) | payer MEDICARE, MEDICAID, SELFPAY ==
[2025-01-07 08:56] LABS: Hematocrit 30.3 % (37.0-47.0); Hemoglobin 9.6 g/dL (12.2-16.2); Immature Granulocytes % 0.2 %; Mean Corpuscular HGB Conc 31.7 g/dL (31.8-35.4); Mean Corpuscular Hemoglobin 28.2 pg (27.0-31.2); Mean Corpuscular Volume 89.1 fl (81-99); Nucleated Red Blood Cells % 0 %; Platelet Count 193 K/mm3 (142-424); Red Blood Count 3.40 M/mm3 (4.20-5.40); Red Cell Distribution Width-SD 45.0 fL; White Blood Count 5.4 K/mm3 (4.8-10.8)
[2025-01-07 09:20] LABS: Iron 35 ug/dL (37-170)
[2025-01-07 09:36] LABS: Total Iron Binding Capacity 364 ug/dL (265-497)
[2025-01-07 09:58] LABS: Ferritin 6.48 ng/ml (11.1-264)
[2025-01-07 10:32] LABS: Folate > 20.00 ng/mL
[2025-01-07 10:56] LABS: Vitamin B12 884 pg/mL (239-931)
== END 2025-01-07 23:59 | disposition home or self-care (01) ==
LOC: LAB.DROPOF 08:36
PROVIDERS: PCP Family Medicine; Visit Provider Family Medicine
DX: D64.9 Anemia, unspecified (principal)
CPT/HCPCS: 36415; 82607; 82728; 82746; 83540; 83550; 85025